=== PATIENT | male | born 1995 | race Caucasian/White ===

== ENCOUNTER 2019-07-27 12:04 | Inpatient (IN) | payer MEDICAID, MEDICARE ==
[~2019-07-27] VITALS: Ht 185.4 cm; Wt 111.6 kg
[~2019-07-27 12:04] MED LIST: CHLO50 PO; CHOL400T56 PO; DIVA-78 PO; EZET10TA13 PO; FISH1CAP27 PO; LEVO15TA6 PO; LORA-1001 PO; LOSA25TA2 PO; QUET200T PO; QUET300T2 PO
[2019-07-27 12:07] VITALS: BP 122/77
[2019-07-27] MEDS ORDERED: HALOPERIDOL 5 MG TABLET PO PRN (12:30)
[2019-07-27] MEDS ORDERED: OMEG-135 PO (12:32)
[2019-07-27] MEDS ORDERED: INFLUENZA VIRUS VACCINE QVS 2019-20 (3YR+)/PF 60 MCG/0.5 ML SYRINGE IM ONE (14:00)
[2019-07-27] MEDS: LORazepam 2 MG TABLET PO PRN (14:01)
[2019-07-27 16:21] VITALS: BP 135/87
[2019-07-27] MEDS: ZOLPIDEM TARTRATE 10 MG TABLET PO PRN (20:41)
[2019-07-27] MEDS ORDERED: ACETAMINOPHEN 325 MG TABLET PO PRN (21:45)
[2019-07-28 04:41] VITALS: BP 148/94
[2019-07-28] MEDS ORDERED: NICOTINE 14 MG/24 HOUR PATCH TD PRN (07:30)
[2019-07-28] MEDS ORDERED: PETROLATUM,WHITE 28 GM JELLY TP PRN (07:30)
[2019-07-28] MEDS ORDERED: LOPERAMIDE HCL 2 MG CAPSULE PO PRN (07:30)
[2019-07-28] MEDS ORDERED: ONDANSETRON HCL 4 MG TABLET PO PRN (07:30)
[2019-07-28] MEDS ORDERED: CloNIDine HCL 0.1 MG TABLET PO PRN (07:30)
[2019-07-28] MEDS ORDERED: ALBUTEROL SULFATE HFA 90 MCG/PUFF 8 GM INHALER IH PRN (07:30)
[2019-07-28] MEDS ORDERED: MAGNESIUM HYDROXIDE SUSPENSION 30 ML UDCUP PO PRN (07:30)
[2019-07-28] MEDS ORDERED: GuaiFENesin/D-METHORPHAN [SUGAR-FREE] 200-20MG/10 ML SYRUP UDCUP PO PRN (07:30)
[2019-07-28] MEDS ORDERED: MAG HYDROX/AL HYDROX/SIMETH ES 30 ML SUSPENSION UDCUP PO PRN (07:30)
[2019-07-28] MEDS ORDERED: DOCUSATE SODIUM 100 MG CAPSULE PO PRN (07:30)
[2019-07-28] MEDS ORDERED: IBUPROFEN 400 MG TABLET PO PRN (07:30)
[2019-07-28 08:21] VITALS: BP 112/78
[2019-07-28] MEDS: LOSARTAN POTASSIUM 25 MG TABLET PO SCH (09:00)
[2019-07-28] MEDS: CHOLECALCIFEROL (VIT D3) 400 UNITS TABLET PO SCH (09:00)
[2019-07-28] MEDS: EZETIMIBE 10 MG TABLET PO SCH (09:00)
[2019-07-28] MEDS: OMEGA-3/DHA/EPA/FISH OIL 1,000 MG CAPSULE PO SCH (09:49)
[2019-07-28] MEDS: BuPROPion HCL XL 150 MG ER TABLET PO SCH (11:56)
[2019-07-28] MEDS: ChlorproMAZINE HCL 100 MG TABLET PO SCH (11:56)
[2019-07-28] MEDS: DIVALPROEX SODIUM 500 MG ER TABLET PO SCH ×2 (11:56→20:36)
[2019-07-28] MEDS: BENZTROPINE MESYLATE 1 MG TABLET PO SCH (11:57)
[2019-07-28 16:16] VITALS: BP 135/74
[2019-07-28] MEDS: LORazepam 2 MG TABLET PO PRN (17:06)
[2019-07-28] MEDS: OLANZapine 7.5 MG TABLET PO SCH (20:36)
[2019-07-28] MEDS: ACETAMINOPHEN 325 MG TABLET PO PRN (20:37)
[2019-07-28] MEDS: ZOLPIDEM TARTRATE 10 MG TABLET PO PRN (22:09)
[2019-07-29 08:24] VITALS: BP 137/90
[2019-07-29] MEDS: CHOLECALCIFEROL (VIT D3) 400 UNITS TABLET PO SCH (08:34)
[2019-07-29] MEDS: BENZTROPINE MESYLATE 1 MG TABLET PO SCH (08:34)
[2019-07-29] MEDS: EZETIMIBE 10 MG TABLET PO SCH (08:34)
[2019-07-29] MEDS: LOSARTAN POTASSIUM 25 MG TABLET PO SCH (08:34)
[2019-07-29] MEDS: ChlorproMAZINE HCL 100 MG TABLET PO SCH (08:34)
[2019-07-29] MEDS: BuPROPion HCL XL 150 MG ER TABLET PO SCH (08:34)
[2019-07-29] MEDS: OLANZapine 5 MG TABLET PO SCH (08:34)
[2019-07-29] MEDS: OMEGA-3/DHA/EPA/FISH OIL 1,000 MG CAPSULE PO SCH (08:34)
[2019-07-29] MEDS: DIVALPROEX SODIUM 500 MG ER TABLET PO SCH ×2 (08:38→20:24)
[2019-07-29 16:17] VITALS: BP 131/80
[2019-07-29] MEDS: LORazepam 2 MG TABLET PO PRN (18:27)
[2019-07-29 18:29] VITALS: BP 130/82
[2019-07-29] MEDS: OLANZapine 7.5 MG TABLET PO SCH (20:24)
[2019-07-29] MEDS: ZOLPIDEM TARTRATE 10 MG TABLET PO PRN (20:28)
[2019-07-29] MEDS ORDERED: LORazepam 2 MG/ML VIAL IM ONE (21:45)
[2019-07-29] MEDS ORDERED: HYPROMELLOSE 0.5% 15 ML OPHTHALMIC SOLUTION OU PRN (23:00)
[2019-07-30 08:15] VITALS: BP 118/70
[2019-07-30] MEDS: OMEGA-3/DHA/EPA/FISH OIL 1,000 MG CAPSULE PO SCH (09:39)
[2019-07-30] MEDS: LOSARTAN POTASSIUM 25 MG TABLET PO SCH (09:39)
[2019-07-30] MEDS: CHOLECALCIFEROL (VIT D3) 400 UNITS TABLET PO SCH (09:39)
[2019-07-30] MEDS: OLANZapine 5 MG TABLET PO SCH (09:39)
[2019-07-30] MEDS: BuPROPion HCL XL 150 MG ER TABLET PO SCH (09:39)
[2019-07-30] MEDS: ChlorproMAZINE HCL 100 MG TABLET PO SCH (09:39)
[2019-07-30] MEDS: EZETIMIBE 10 MG TABLET PO SCH (09:39)
[2019-07-30] MEDS: DIVALPROEX SODIUM 500 MG ER TABLET PO SCH ×2 (09:40→20:46)
[2019-07-30] MEDS: BENZTROPINE MESYLATE 1 MG TABLET PO SCH (09:40)
[2019-07-30 16:39] VITALS: BP 120/87
[2019-07-30] MEDS: OLANZapine 7.5 MG TABLET PO SCH (20:46)
[2019-07-30] MEDS: ZOLPIDEM TARTRATE 10 MG TABLET PO PRN (21:02)
[2019-07-31] MEDS: OMEGA-3/DHA/EPA/FISH OIL 1,000 MG CAPSULE PO SCH (09:00)
[2019-07-31] MEDS: DIVALPROEX SODIUM 500 MG ER TABLET PO SCH ×2 (09:00→20:38)
[2019-07-31] MEDS: BuPROPion HCL XL 150 MG ER TABLET PO SCH (09:00)
[2019-07-31] MEDS: OLANZapine 5 MG TABLET PO SCH (09:00)
[2019-07-31] MEDS: ChlorproMAZINE HCL 100 MG TABLET PO SCH (09:00)
[2019-07-31] MEDS: BENZTROPINE MESYLATE 1 MG TABLET PO SCH (09:00)
[2019-07-31] MEDS: EZETIMIBE 10 MG TABLET PO SCH (09:00)
[2019-07-31] MEDS: CHOLECALCIFEROL (VIT D3) 400 UNITS TABLET PO SCH (09:00)
[2019-07-31] MEDS: LOSARTAN POTASSIUM 25 MG TABLET PO SCH (09:00)
[2019-07-31 09:53] VITALS: BP 135/76
[2019-07-31] MEDS: LORazepam 2 MG TABLET PO PRN (11:27)
[2019-07-31 16:22] VITALS: BP 135/82
[2019-07-31] MEDS: OLANZapine 7.5 MG TABLET PO SCH (20:38)
[2019-07-31] MEDS: ZOLPIDEM TARTRATE 10 MG TABLET PO PRN (21:30)
[2019-07-31] MEDS ORDERED: HYDROCORTISONE 1% 30 GM CREAM TP PRN (22:30)
[2019-07-31] MEDS: ACETAMINOPHEN 325 MG TABLET PO PRN (22:50)
[2019-08-01 01:52] VITALS: BP 124/54
[2019-08-01] MEDS: OMEGA-3/DHA/EPA/FISH OIL 1,000 MG CAPSULE PO SCH (08:17)
[2019-08-01] MEDS: BuPROPion HCL XL 150 MG ER TABLET PO SCH (08:17)
[2019-08-01] MEDS: DIVALPROEX SODIUM 500 MG ER TABLET PO SCH ×2 (08:17→20:28)
[2019-08-01] MEDS: BENZTROPINE MESYLATE 1 MG TABLET PO SCH (08:17)
[2019-08-01 08:18] VITALS: BP 138/72
[2019-08-01] MEDS: OLANZapine 5 MG TABLET PO SCH (08:18)
[2019-08-01] MEDS: LOSARTAN POTASSIUM 25 MG TABLET PO SCH (08:18)
[2019-08-01] MEDS: EZETIMIBE 10 MG TABLET PO SCH (08:18)
[2019-08-01] MEDS: CHOLECALCIFEROL (VIT D3) 400 UNITS TABLET PO SCH (08:26)
[2019-08-01] MEDS: ChlorproMAZINE HCL 100 MG TABLET PO SCH (08:26)
[2019-08-01] MEDS: LORazepam 2 MG TABLET PO PRN ×2 (12:34→21:14)
[2019-08-01 17:47] VITALS: BP 128/78
[2019-08-01] MEDS: OLANZapine 7.5 MG TABLET PO SCH (20:29)
[2019-08-01] MEDS: ZOLPIDEM TARTRATE 10 MG TABLET PO PRN (20:54)
[2019-08-01] MEDS: ACETAMINOPHEN 325 MG TABLET PO PRN (21:14)
[2019-08-02 06:38] VITALS: BP 113/60
[2019-08-02] MEDS: BuPROPion HCL XL 150 MG ER TABLET PO SCH (08:53)
[2019-08-02] MEDS: CHOLECALCIFEROL (VIT D3) 400 UNITS TABLET PO SCH (08:53)
[2019-08-02] MEDS: BENZTROPINE MESYLATE 1 MG TABLET PO SCH (08:53)
[2019-08-02] MEDS: ChlorproMAZINE HCL 100 MG TABLET PO SCH (08:53)
[2019-08-02] MEDS: LOSARTAN POTASSIUM 25 MG TABLET PO SCH (08:53)
[2019-08-02] MEDS: EZETIMIBE 10 MG TABLET PO SCH (08:53)
[2019-08-02] MEDS: LORazepam 2 MG TABLET PO PRN (08:53)
[2019-08-02] MEDS: DIVALPROEX SODIUM 500 MG ER TABLET PO SCH ×2 (08:53→20:32)
[2019-08-02] MEDS: OMEGA-3/DHA/EPA/FISH OIL 1,000 MG CAPSULE PO SCH (08:53)
[2019-08-02] MEDS: OLANZapine 5 MG TABLET PO SCH (08:53)
[2019-08-02 16:10] VITALS: BP 134/70
[2019-08-02] MEDS: ACETAMINOPHEN 325 MG TABLET PO PRN (20:23)
[2019-08-02] MEDS: OLANZapine 7.5 MG TABLET PO SCH (20:33)
[2019-08-02] MEDS: ZOLPIDEM TARTRATE 10 MG TABLET PO PRN (21:20)
[2019-08-03 01:09] VITALS: BP 127/61
[2019-08-03 01:13] VITALS: BP 127/61
[2019-08-03 08:07] VITALS: BP 131/87
[2019-08-03] MEDS: ChlorproMAZINE HCL 100 MG TABLET PO SCH (09:24)
[2019-08-03] MEDS: BENZTROPINE MESYLATE 1 MG TABLET PO SCH (09:24)
[2019-08-03] MEDS: OLANZapine 5 MG TABLET PO SCH (09:24)
[2019-08-03] MEDS: BuPROPion HCL XL 150 MG ER TABLET PO SCH (09:25)
[2019-08-03] MEDS: DIVALPROEX SODIUM 500 MG ER TABLET PO SCH ×2 (09:25→20:44)
[2019-08-03] MEDS: CHOLECALCIFEROL (VIT D3) 400 UNITS TABLET PO SCH (09:25)
[2019-08-03] MEDS: EZETIMIBE 10 MG TABLET PO SCH (09:26)
[2019-08-03] MEDS: OMEGA-3/DHA/EPA/FISH OIL 1,000 MG CAPSULE PO SCH (09:26)
[2019-08-03] MEDS: LOSARTAN POTASSIUM 25 MG TABLET PO SCH (09:26)
[2019-08-03 16:05] VITALS: BP 122/68
[2019-08-03] MEDS: OLANZapine 7.5 MG TABLET PO SCH (20:45)
[2019-08-03] MEDS: LORazepam 2 MG TABLET PO PRN (20:54)
[2019-08-03] MEDS: ZOLPIDEM TARTRATE 10 MG TABLET PO PRN (21:15)
[2019-08-04] MEDS: DIVALPROEX SODIUM 500 MG ER TABLET PO SCH ×2 (08:24→20:40)
[2019-08-04] MEDS: BENZTROPINE MESYLATE 1 MG TABLET PO SCH (08:24)
[2019-08-04] MEDS: LOSARTAN POTASSIUM 25 MG TABLET PO SCH (08:24)
[2019-08-04] MEDS: OLANZapine 5 MG TABLET PO SCH (09:36)
[2019-08-04] MEDS: EZETIMIBE 10 MG TABLET PO SCH (09:36)
[2019-08-04] MEDS: ChlorproMAZINE HCL 100 MG TABLET PO SCH (09:37)
[2019-08-04] MEDS: OMEGA-3/DHA/EPA/FISH OIL 1,000 MG CAPSULE PO SCH (09:37)
[2019-08-04] MEDS: BuPROPion HCL XL 150 MG ER TABLET PO SCH (09:37)
[2019-08-04] MEDS: CHOLECALCIFEROL (VIT D3) 400 UNITS TABLET PO SCH (09:37)
[2019-08-04 16:04] VITALS: BP 138/79
[2019-08-04] MEDS: OLANZapine 7.5 MG TABLET PO SCH (20:40)
[2019-08-04] MEDS: ZOLPIDEM TARTRATE 10 MG TABLET PO PRN (22:11)
[2019-08-05 00:05] VITALS: BP 129/70
[2019-08-05] MEDS: OLANZapine 5 MG TABLET PO SCH (08:16)
[2019-08-05] MEDS: DIVALPROEX SODIUM 500 MG ER TABLET PO SCH ×2 (08:16→22:08)
[2019-08-05] MEDS: ChlorproMAZINE HCL 100 MG TABLET PO SCH (08:16)
[2019-08-05] MEDS: OMEGA-3/DHA/EPA/FISH OIL 1,000 MG CAPSULE PO SCH (08:16)
[2019-08-05] MEDS: BENZTROPINE MESYLATE 1 MG TABLET PO SCH (08:17)
[2019-08-05] MEDS: EZETIMIBE 10 MG TABLET PO SCH (08:17)
[2019-08-05] MEDS: BuPROPion HCL XL 150 MG ER TABLET PO SCH (08:17)
[2019-08-05] MEDS: LOSARTAN POTASSIUM 25 MG TABLET PO SCH (08:17)
[2019-08-05] MEDS: CHOLECALCIFEROL (VIT D3) 400 UNITS TABLET PO SCH (08:17)
[2019-08-05 08:19] VITALS: BP 135/84
[2019-08-05] MEDS: NALTREXONE HCL 50 MG TABLET PO SCH (11:15)
[2019-08-05] MEDS: LORazepam 2 MG TABLET PO PRN (14:59)
[2019-08-05 16:04] VITALS: BP 138/81
[2019-08-05] MEDS: OLANZapine 7.5 MG TABLET PO SCH (22:08)
[2019-08-05] MEDS: ZOLPIDEM TARTRATE 10 MG TABLET PO PRN (22:20)
[2019-08-06 00:12] VITALS: BP 112/63
[2019-08-06] MEDS: OLANZapine 5 MG TABLET PO SCH (11:05)
[2019-08-06] MEDS: ChlorproMAZINE HCL 100 MG TABLET PO SCH (11:05)
[2019-08-06] MEDS: DIVALPROEX SODIUM 500 MG ER TABLET PO SCH ×2 (11:05→21:11)
[2019-08-06] MEDS: EZETIMIBE 10 MG TABLET PO SCH (11:05)
[2019-08-06] MEDS: BENZTROPINE MESYLATE 1 MG TABLET PO SCH (11:05)
[2019-08-06] MEDS: CHOLECALCIFEROL (VIT D3) 400 UNITS TABLET PO SCH (11:05)
[2019-08-06] MEDS: NALTREXONE HCL 50 MG TABLET PO SCH (11:05)
[2019-08-06] MEDS: LOSARTAN POTASSIUM 25 MG TABLET PO SCH (11:06)
[2019-08-06] MEDS: OMEGA-3/DHA/EPA/FISH OIL 1,000 MG CAPSULE PO SCH (11:06)
[2019-08-06] MEDS: BuPROPion HCL XL 150 MG ER TABLET PO SCH (11:11)
[2019-08-06 14:14] VITALS: BP 124/72
[2019-08-06 16:09] VITALS: BP 139/76
[2019-08-06] MEDS ORDERED: LORazepam 2 MG TABLET PO PRN (18:45)
[2019-08-06] MEDS: ZOLPIDEM TARTRATE 10 MG TABLET PO PRN (21:17)
[2019-08-06] MEDS: OLANZapine 7.5 MG TABLET PO SCH (21:20)
[2019-08-07 01:25] VITALS: BP 114/72
[2019-08-07 07:21] LABS: BASOPHILS % (AUTO) 0.4 % (0.0-2.0); EOSINOPHILS % (AUTO) 0.6 % (1.0-6.0); HEMOGLOBIN 13.3 g/dL (13.5-17.5); LYMPHOCYTES % (AUTO) 35.2 % (22.0-44.0); MEAN CORPUSCULAR HEMOGLOBIN 30.9 pg (26.0-34.0); MEAN CORPUSCULAR VOLUME 91 fL (80-100); MONOCYTES # (AUTO) 0.7 K/uL (0.1-1.0); MONOCYTES % (AUTO) 8.3 % (2.0-9.0); NEUTROPHILS # (AUTO) 4.7 K/uL (1.8-7.7); NEUTROPHILS % (AUTO) 55.5 % (40.0-70.0); PLATELET COUNT (AUTO) 194 K/uL (150-450); RED BLOOD CELL COUNT(AUTO) 4.29 MIL/uL (4.50-5.90); RED CELL DISTRIBUTION WIDTH 13.4 % (11.5-14.5)
[2019-08-07 07:46] LABS: HEMOGLOBIN A1C 5.4 % (4.5-6.2)
[2019-08-07 07:55] LABS: ALANINE AMINOTRANSFERASE 75 U/L (12-78); ALBUMIN 3.4 g/dL (3.4-5.0); ALKALINE PHOSPHATASE 44 U/L (46-116); ANION GAP 5 mmol/L (8-16); ASPARTATE AMINOTRANSFERASE 26 U/L (15-37); BILIRUBIN,TOTAL 0.2 mg/dL (0.1-1.0); CARBON DIOXIDE 32 mmol/L (22-29); CHLORIDE 103 mmol/L (98-107); CHOL/HDL RATIO 4.7 (4.2-7.3); CHOLESTEROL 136 mg/dL (131-200); CREATININE 0.97 mg/dL (0.60-1.30); GLOMERULAR FILTR. RATE CALC > 60 mL/min (>60); GLUCOSE,RANDOM 81 mg/dL (70-110); HDL CHOLESTEROL 29 mg/dL (40-60); LDL CHOL (CALC.) 79 mg/dL (0-130); POTASSIUM 4.4 mmol/L (3.5-5.1); SODIUM SERUM 140 mmol/L (136-145); THYROID STIMULATING HORMONE 4.19 uIU/mL (0.36-3.74); TOTAL PROTEIN, SERUM 6.5 g/dL (6.4-8.2); TRIGLYCERIDES 140 mg/dL (15-150); UREA NITROGEN, BLOOD 13 mg/dL (7-18)
[2019-08-07] MEDS: BuPROPion HCL XL 150 MG ER TABLET PO SCH (09:39)
[2019-08-07] MEDS: BENZTROPINE MESYLATE 1 MG TABLET PO SCH (09:39)
[2019-08-07] MEDS: DIVALPROEX SODIUM 500 MG ER TABLET PO SCH ×2 (09:39→20:27)
[2019-08-07] MEDS: OLANZapine 5 MG TABLET PO SCH (09:39)
[2019-08-07] MEDS: OMEGA-3/DHA/EPA/FISH OIL 1,000 MG CAPSULE PO SCH (09:40)
[2019-08-07] MEDS: EZETIMIBE 10 MG TABLET PO SCH (09:40)
[2019-08-07] MEDS: NALTREXONE HCL 50 MG TABLET PO SCH (09:40)
[2019-08-07] MEDS: ChlorproMAZINE HCL 100 MG TABLET PO SCH (09:40)
[2019-08-07] MEDS: CHOLECALCIFEROL (VIT D3) 400 UNITS TABLET PO SCH (09:41)
[2019-08-07] MEDS: LOSARTAN POTASSIUM 25 MG TABLET PO SCH (09:44)
[2019-08-07 09:52] VITALS: BP 136/70
[2019-08-07 16:04] VITALS: BP 125/80
[2019-08-07] MEDS: OLANZapine 7.5 MG TABLET PO SCH (20:27)
[2019-08-07] MEDS: ZOLPIDEM TARTRATE 10 MG TABLET PO PRN (22:15)
[2019-08-08 00:09] VITALS: BP 124/62
[2019-08-08 08:09] VITALS: BP 126/77
[2019-08-08] MEDS: ChlorproMAZINE HCL 100 MG TABLET PO SCH (09:14)
[2019-08-08] MEDS: BENZTROPINE MESYLATE 1 MG TABLET PO SCH (09:14)
[2019-08-08] MEDS: DIVALPROEX SODIUM 500 MG ER TABLET PO SCH ×2 (09:14→20:36)
[2019-08-08] MEDS: LOSARTAN POTASSIUM 25 MG TABLET PO SCH (09:14)
[2019-08-08] MEDS: NALTREXONE HCL 50 MG TABLET PO SCH (09:14)
[2019-08-08] MEDS: CHOLECALCIFEROL (VIT D3) 400 UNITS TABLET PO SCH (09:14)
[2019-08-08] MEDS: BuPROPion HCL XL 150 MG ER TABLET PO SCH (09:14)
[2019-08-08] MEDS: OLANZapine 5 MG TABLET PO SCH (09:14)
[2019-08-08] MEDS: EZETIMIBE 10 MG TABLET PO SCH (09:15)
[2019-08-08] MEDS: OMEGA-3/DHA/EPA/FISH OIL 1,000 MG CAPSULE PO SCH (09:16)
[2019-08-08 16:47] VITALS: BP 136/70
[2019-08-08] MEDS: OLANZapine 7.5 MG TABLET PO SCH (20:35)
[2019-08-08] MEDS: ZOLPIDEM TARTRATE 10 MG TABLET PO PRN (20:36)
[2019-08-09] MEDS: LOSARTAN POTASSIUM 25 MG TABLET PO SCH (08:04)
[2019-08-09] MEDS: EZETIMIBE 10 MG TABLET PO SCH (08:04)
[2019-08-09] MEDS: OMEGA-3/DHA/EPA/FISH OIL 1,000 MG CAPSULE PO SCH (08:04)
[2019-08-09] MEDS: DIVALPROEX SODIUM 500 MG ER TABLET PO SCH (08:04)
[2019-08-09] MEDS: NALTREXONE HCL 50 MG TABLET PO SCH (08:04)
[2019-08-09] MEDS: ChlorproMAZINE HCL 100 MG TABLET PO SCH (08:04)
[2019-08-09] MEDS: CHOLECALCIFEROL (VIT D3) 400 UNITS TABLET PO SCH (08:05)
[2019-08-09] MEDS: BuPROPion HCL XL 150 MG ER TABLET PO SCH (08:06)
[2019-08-09] MEDS: OLANZapine 5 MG TABLET PO SCH (08:06)
[2019-08-09] MEDS: BENZTROPINE MESYLATE 1 MG TABLET PO SCH (08:06)
[2019-08-09 08:19] VITALS: BP 152/90
[2019-08-09] MEDS: ACETAMINOPHEN 325 MG TABLET PO PRN (09:04)
[2019-08-09] MEDS ORDERED: BENZ1TAB10 PO (09:59)
[2019-08-09] MEDS ORDERED: CHLO100T24 PO (09:59)
[2019-08-09] MEDS ORDERED: NALT50TA6 PO (09:59)
[2019-08-09] MEDS ORDERED: BUPR75 PO (09:59)
[2019-08-09] MEDS ORDERED: OLAN5TAB2 PO (09:59)
[2019-08-09] MEDS ORDERED: OLAN7.5T2 PO (09:59)
[2019-08-09] MEDS ORDERED: DIVA125SP PO ×2 (09:59)
== END 2019-08-09 11:50 | disposition home or self-care (01) | DRG 885 ==
LOC: B2X 12:29
PROVIDERS: ADMIT Psychiatry & Neurology Child & Adolescent Psychiatry; ATTEND Psychiatry & Neurology Child & Adolescent Psychiatry
DX: F25.0 Schizoaffective disorder, bipolar type (principal); D64.9 Anemia, unspecified; F84.5 Asperger's syndrome; E03.9 Hypothyroidism, unspecified; E55.9 Vitamin D deficiency, unspecified; E78.5 Hyperlipidemia, unspecified; I10 Essential (primary) hypertension; Z23 Encounter for immunization
CPT/HCPCS: 83036; 84439; 84443; 90686; J2060; J3230

== ENCOUNTER 2020-05-07 17:08 | Emergency (ER) | payer MEDICARE, SELFPAY ==
[~2020-05-07] VITALS: Ht 185.4 cm; Wt 120.0 kg
[~2020-05-07 17:08] MED LIST changes: +BENZ1TAB10 PO; +BUPR75 PO; +CHLO100T31 PO; -CHLO50 PO; -DIVA-78 PO; +DIVA125C20 PO; -FISH1CAP27 PO; -LEVO15TA6 PO; -LORA-1001 PO; +NALT50TA6 PO; +OLAN5TAB2 PO; +OLAN7.5T2 PO; +OMEG-135 PO; -QUET200T PO; -QUET300T2 PO
[2020-05-07 18:59] LABS: AMPHET/METH SCREEN,URINE NEGATIVE (NEGATIVE); BARBITURATE SCREEN, URINE NEGATIVE (NEGATIVE); BENZODIAZEPINES SCREEN,URINE NEGATIVE (NEGATIVE); CANNABINOID SCREEN,URINE NEGATIVE (NEGATIVE); COCAINE SCREEN,URINE NEGATIVE (NEGATIVE); METHADONE SCREEN, URINE NEGATIVE (NEGATIVE); OPIATE SCREEN,URINE NEGATIVE (NEGATIVE); PHENCYCLIDINE SCREEN,URINE NEGATIVE (NEGATIVE)
[2020-05-07 19:26] LABS: BASOPHILS % (AUTO) 0.4 % (0.0-2.0); EOSINOPHILS % (AUTO) 0.2 % (1.0-6.0); HEMATOCRIT 38.2 % (41-53); HEMOGLOBIN 13.1 g/dL (13.5-17.5); LYMPHOCYTES # (AUTO) 2.4 K/uL (1.0-4.8); LYMPHOCYTES % (AUTO) 20.7 % (22.0-44.0); MEAN CORPUSCULAR HEMOGLOBIN 30.3 pg (26.0-34.0); MEAN CORPUSCULAR HGB CONC 34.3 G/dL (31.0-37.0); MEAN CORPUSCULAR VOLUME 88 fL (80-100); MONOCYTES # (AUTO) 0.9 K/uL (0.1-1.0); MONOCYTES % (AUTO) 8.3 % (2.0-9.0); NEUTROPHILS % (AUTO) 70.4 % (40.0-70.0); PLATELET COUNT (AUTO) 181 K/uL (150-450); RED BLOOD CELL COUNT(AUTO) 4.32 MIL/uL (4.50-5.90); RED CELL DISTRIBUTION WIDTH 13.6 % (11.5-14.5)
[2020-05-07 19:38] LABS: ANION GAP 7 mmol/L (8-16); CALCIUM, TOTAL 9.4 mg/dL (8.8-10.5); CARBON DIOXIDE 27 mmol/L (22-29); CHLORIDE 103 mmol/L (98-107); CREATININE 0.82 mg/dL (0.60-1.30); GLOMERULAR FILTR. RATE CALC > 60 mL/min (>60); GLUCOSE,RANDOM 124 mg/dL (70-110); POTASSIUM 3.7 mmol/L (3.5-5.1); SODIUM SERUM 137 mmol/L (136-145); UREA NITROGEN, BLOOD 15 mg/dL (7-18)
[2020-05-07 19:43] LABS: ALANINE AMINOTRANSFERASE 34 U/L (12-78); ALBUMIN 3.8 g/dL (3.4-5.0); ALKALINE PHOSPHATASE 48 U/L (46-116); ASPARTATE AMINOTRANSFERASE 32 U/L (15-37); BILIRUBIN,TOTAL 0.2 mg/dL (0.1-1.0); TOTAL PROTEIN, SERUM 7.6 g/dL (6.4-8.2)
[2020-05-07 20:12] VITALS: BP 132/86
== END 2020-05-07 21:15 | disposition home or self-care (01) ==
LOC: EMS 17:10
DX: M79.604 Pain in right leg (principal); R44.0 Auditory hallucinations; F32.9 Major depressive disorder, single episode, unspecified; F41.9 Anxiety disorder, unspecified; F17.210 Nicotine dependence, cigarettes, uncomplicated; Z88.8 Allergy status to other drugs, medicaments and biological substances; Z79.899 Other long term (current) drug therapy
CPT/HCPCS: 36415; 73590; 73610; 80053; 80307; 85025; 99284; G0480

== ENCOUNTER 2020-05-09 05:20 | Inpatient (IN) | payer MEDICARE ==
[~2020-05-09] VITALS: Ht 188 cm; Wt 127.9 kg
[2020-05-09] MEDS ORDERED: LORazepam 2 MG/ML VIAL IM ONE (06:30)
[2020-05-09] MEDS ORDERED: HALOPERIDOL LACTATE 5 MG/ML VIAL IM ONE (06:30)
[2020-05-09 08:47] LABS: BASOPHILS % (AUTO) 0.8 % (0.0-2.0); EOSINOPHILS % (AUTO) 0.5 % (1.0-6.0); HEMATOCRIT 38.2 % (41-53); HEMOGLOBIN 13.2 g/dL (13.5-17.5); LYMPHOCYTES # (AUTO) 1.8 K/uL (1.0-4.8); LYMPHOCYTES % (AUTO) 21.4 % (22.0-44.0); MEAN CORPUSCULAR HEMOGLOBIN 30.6 pg (26.0-34.0); MEAN CORPUSCULAR HGB CONC 34.4 G/dL (31.0-37.0); MEAN CORPUSCULAR VOLUME 89 fL (80-100); MONOCYTES # (AUTO) 0.9 K/uL (0.1-1.0); MONOCYTES % (AUTO) 9.9 % (2.0-9.0); NEUTROPHILS # (AUTO) 5.8 K/uL (1.8-7.7); NEUTROPHILS % (AUTO) 67.4 % (40.0-70.0); PLATELET COUNT (AUTO) 172 K/uL (150-450); RED CELL DISTRIBUTION WIDTH 13.7 % (11.5-14.5)
[2020-05-09 08:54] LABS: COVID AG,FIA SOURCE NASOPHARYNGEAL
[2020-05-09 08:59] LABS: ANION GAP 6 mmol/L (8-16); CALCIUM, TOTAL 9.1 mg/dL (8.8-10.5); CARBON DIOXIDE 29 mmol/L (22-29); CHLORIDE 103 mmol/L (98-107); CREATININE 0.86 mg/dL (0.60-1.30); GLOMERULAR FILTR. RATE CALC > 60 mL/min (>60); GLUCOSE,RANDOM 95 mg/dL (70-110); SODIUM SERUM 138 mmol/L (136-145); UREA NITROGEN, BLOOD 16 mg/dL (7-18)
[2020-05-09 09:05] LABS: ALANINE AMINOTRANSFERASE 39 U/L (12-78); ALBUMIN 3.7 g/dL (3.4-5.0); ALKALINE PHOSPHATASE 46 U/L (46-116); ASPARTATE AMINOTRANSFERASE 29 U/L (15-37); BILIRUBIN,TOTAL 0.3 mg/dL (0.1-1.0); TOTAL PROTEIN, SERUM 7.5 g/dL (6.4-8.2)
[2020-05-09 09:06] LABS: VALPROIC ACID < 3 mcg/mL (50-100)
[2020-05-09] MEDS ORDERED: ZOLPIDEM TARTRATE 10 MG TABLET PO PRN (09:30)
[2020-05-09] MEDS ORDERED: ATEN-73 PO (16:11)
[2020-05-09] MEDS ORDERED: BUPR-93 PO (16:11)
[2020-05-09] MEDS ORDERED: DIVA-112 PO ×2 (16:11)
[2020-05-09] MEDS ORDERED: LEVO50TA11 PO (16:11)
[2020-05-09] MEDS ORDERED: CHLO50TA41 PO (16:11)
[2020-05-09] MEDS ORDERED: ALBUTEROL SULFATE HFA 90 MCG/PUFF 8 GM INHALER IH PRN (16:15)
[2020-05-09] MEDS ORDERED: PETROLATUM,WHITE 28 GM JELLY TP PRN (16:15)
[2020-05-09] MEDS ORDERED: MAGNESIUM HYDROXIDE SUSPENSION 30 ML UDCUP PO PRN (16:15)
[2020-05-09] MEDS ORDERED: MAG HYDROX/AL HYDROX/SIMETH ES 30 ML SUSPENSION UDCUP PO PRN (16:15)
[2020-05-09] MEDS ORDERED: NICOTINE 14 MG/24 HOUR PATCH TD PRN (16:15)
[2020-05-09] MEDS ORDERED: CloNIDine HCL 0.1 MG TABLET PO PRN (16:15)
[2020-05-09] MEDS ORDERED: LOPERAMIDE HCL 2 MG CAPSULE PO PRN (16:15)
[2020-05-09] MEDS ORDERED: ONDANSETRON HCL 4 MG TABLET PO PRN (16:15)
[2020-05-09] MEDS ORDERED: DOCUSATE SODIUM 100 MG CAPSULE PO PRN (16:15)
[2020-05-09 17:20] VITALS: BP 93/58
[2020-05-09] MEDS: IBUPROFEN 400 MG TABLET PO PRN (20:18)
[2020-05-10 04:52] VITALS: BP 140/86
[2020-05-10] MEDS ORDERED: INFLUENZA VIRUS VACCINE QVS 2020-21 (6MO+)/PF 60 MCG/0.5 ML SYRINGE IM ONE (05:15)
[2020-05-10] MEDS: GuaiFENesin/D-METHORPHAN [SUGAR-FREE] 200-20MG/10 ML SYRUP UDCUP PO PRN (06:11)
[2020-05-10 08:37] VITALS: BP 120/70
[2020-05-10] MEDS: OMEGA-3/DHA/EPA/FISH OIL 1,000 MG CAPSULE PO SCH (09:11)
[2020-05-10] MEDS: ACETAMINOPHEN 325 MG TABLET PO PRN (09:11)
[2020-05-10] MEDS: CHOLECALCIFEROL (VIT D3) 400 UNITS [10 MCG] TABLET PO SCH (09:12)
[2020-05-10] MEDS: LOSARTAN POTASSIUM 25 MG TABLET PO SCH (09:12)
[2020-05-10] MEDS: EZETIMIBE 10 MG TABLET PO SCH (09:12)
[2020-05-10] MEDS ORDERED: BENZTROPINE MESYLATE 1 MG/ML 2 ML VIAL IM ONE (13:00)
[2020-05-10] MEDS ORDERED: ChlorproMAZINE HCL 50 MG/2 ML AMP IM ONE (13:00)
[2020-05-10] MEDS ORDERED: BENZTROPINE MESYLATE 1 MG/ML 2 ML VIAL ONE (13:04)
[2020-05-10] MEDS: LORazepam 2 MG TABLET PO PRN (13:10)
[2020-05-10] MEDS: HALOPERIDOL 5 MG TABLET PO PRN (13:10)
[2020-05-10 16:09] VITALS: BP 122/69
[2020-05-10] MEDS: IBUPROFEN 400 MG TABLET PO PRN (16:14)
[2020-05-10] MEDS: LURASIDONE HCL 40 MG TABLET PO SCH (16:14)
[2020-05-11] MEDS: ACETAMINOPHEN 325 MG TABLET PO PRN (06:52)
[2020-05-11 08:38] VITALS: BP 133/90
[2020-05-11] MEDS: EZETIMIBE 10 MG TABLET PO SCH (09:11)
[2020-05-11] MEDS: OMEGA-3/DHA/EPA/FISH OIL 1,000 MG CAPSULE PO SCH (09:11)
[2020-05-11] MEDS: LORazepam 2 MG TABLET PO PRN ×2 (09:11→14:07)
[2020-05-11] MEDS: LOSARTAN POTASSIUM 25 MG TABLET PO SCH (09:12)
[2020-05-11] MEDS: CHOLECALCIFEROL (VIT D3) 400 UNITS [10 MCG] TABLET PO SCH (09:12)
[2020-05-11 16:09] VITALS: BP 123/73
[2020-05-11] MEDS: LURASIDONE HCL 40 MG TABLET PO SCH (16:23)
[2020-05-11 16:56] VITALS: BP 136/81
[2020-05-11] MEDS: IBUPROFEN 400 MG TABLET PO PRN (16:56)
[2020-05-11] MEDS: DIVALPROEX SODIUM 500 MG DR TABLET PO SCH (21:00)
[2020-05-12 00:30] VITALS: BP 127/74
[2020-05-12] MEDS: GuaiFENesin/D-METHORPHAN [SUGAR-FREE] 200-20MG/10 ML SYRUP UDCUP PO PRN (06:35)
[2020-05-12] MEDS: DIVALPROEX SODIUM 500 MG DR TABLET PO SCH ×3 (08:22→21:19)
[2020-05-12] MEDS: OMEGA-3/DHA/EPA/FISH OIL 1,000 MG CAPSULE PO SCH (08:23)
[2020-05-12] MEDS: EZETIMIBE 10 MG TABLET PO SCH (08:23)
[2020-05-12] MEDS: CHOLECALCIFEROL (VIT D3) 400 UNITS [10 MCG] TABLET PO SCH (08:23)
[2020-05-12] MEDS: LOSARTAN POTASSIUM 25 MG TABLET PO SCH (08:23)
[2020-05-12] MEDS: LORazepam 2 MG TABLET PO PRN (08:23)
[2020-05-12 08:47] VITALS: BP 140/80
[2020-05-12] MEDS: HALOPERIDOL 5 MG TABLET PO PRN (09:14)
[2020-05-12] MEDS ORDERED: ChlorproMAZINE HCL 50 MG/2 ML AMP ONE (09:50)
[2020-05-12] MEDS ORDERED: ChlorproMAZINE HCL 50 MG/2 ML AMP IM ONE ×2 (10:00→16:15)
[2020-05-12] MEDS ORDERED: BENZTROPINE MESYLATE 1 MG/ML 2 ML VIAL IM ONE ×2 (10:00→16:15)
[2020-05-12] MEDS ORDERED: LORazepam 2 MG/ML VIAL ONE (16:14)
[2020-05-12] MEDS ORDERED: LORazepam 2 MG/ML VIAL IM ONE (16:15)
[2020-05-12 16:39] VITALS: BP 121/55
[2020-05-12] MEDS: LURASIDONE HCL 40 MG TABLET PO SCH (17:00)
[2020-05-12 21:35] VITALS: BP 115/77
[2020-05-13 08:07] VITALS: BP 143/78
[2020-05-13] MEDS: CHOLECALCIFEROL (VIT D3) 400 UNITS [10 MCG] TABLET PO SCH (09:37)
[2020-05-13] MEDS: EZETIMIBE 10 MG TABLET PO SCH (09:37)
[2020-05-13] MEDS: LOSARTAN POTASSIUM 25 MG TABLET PO SCH (09:37)
[2020-05-13] MEDS: OMEGA-3/DHA/EPA/FISH OIL 1,000 MG CAPSULE PO SCH (09:38)
[2020-05-13] MEDS: DIVALPROEX SODIUM 500 MG DR TABLET PO SCH ×3 (09:42→21:37)
[2020-05-13] MEDS: OLANZapine 7.5 MG TABLET PO SCH ×3 (09:53→21:37)
[2020-05-13] MEDS: ACETAMINOPHEN 325 MG TABLET PO PRN (16:01)
[2020-05-13] MEDS: LORazepam 2 MG TABLET PO PRN (16:02)
[2020-05-13 16:08] VITALS: BP 120/79
[2020-05-13] MEDS: HALOPERIDOL 5 MG TABLET PO PRN (16:53)
[2020-05-14 06:09] VITALS: BP 124/71
[2020-05-14] MEDS: LEVOTHYROXINE SODIUM 50 MCG TABLET PO SCH ×2 (06:30→06:55)
[2020-05-14 08:06] VITALS: BP 137/83
[2020-05-14] MEDS: OLANZapine 7.5 MG TABLET PO SCH ×3 (10:42→21:00)
[2020-05-14] MEDS: OMEGA-3/DHA/EPA/FISH OIL 1,000 MG CAPSULE PO SCH (10:42)
[2020-05-14] MEDS: EZETIMIBE 10 MG TABLET PO SCH (10:42)
[2020-05-14] MEDS: DIVALPROEX SODIUM 500 MG DR TABLET PO SCH ×3 (10:42→21:00)
[2020-05-14] MEDS: FOLIC ACID 1 MG TABLET PO SCH (10:42)
[2020-05-14] MEDS: CHOLECALCIFEROL (VIT D3) 400 UNITS [10 MCG] TABLET PO SCH (10:42)
[2020-05-14] MEDS: LOSARTAN POTASSIUM 25 MG TABLET PO SCH (10:43)
[2020-05-14] MEDS ORDERED: LORazepam 2 MG/ML VIAL ONE (13:03)
[2020-05-14] MEDS ORDERED: ChlorproMAZINE HCL 50 MG/2 ML AMP ONE (13:03)
[2020-05-14] MEDS ORDERED: LORazepam 2 MG/ML VIAL IM ONE (13:15)
[2020-05-14] MEDS ORDERED: ChlorproMAZINE HCL 50 MG/2 ML AMP IM ONE (13:15)
[2020-05-14 16:38] VITALS: BP 132/80
[2020-05-14] MEDS: HALOPERIDOL 5 MG TABLET PO PRN (16:53)
[2020-05-14] MEDS: LORazepam 2 MG TABLET PO PRN (17:08)
[2020-05-15 04:14] VITALS: BP 141/86
[2020-05-15] MEDS: LEVOTHYROXINE SODIUM 50 MCG TABLET PO SCH (06:30)
[2020-05-15 08:26] VITALS: BP 141/86
[2020-05-15] MEDS: DIVALPROEX SODIUM 500 MG DR TABLET PO SCH ×3 (08:53→20:34)
[2020-05-15] MEDS: EZETIMIBE 10 MG TABLET PO SCH (08:53)
[2020-05-15] MEDS: FOLIC ACID 1 MG TABLET PO SCH (08:53)
[2020-05-15] MEDS: OMEGA-3/DHA/EPA/FISH OIL 1,000 MG CAPSULE PO SCH (08:53)
[2020-05-15] MEDS: OLANZapine 7.5 MG TABLET PO SCH ×3 (08:53→20:35)
[2020-05-15] MEDS: IBUPROFEN 400 MG TABLET PO PRN (08:53)
[2020-05-15] MEDS: LOSARTAN POTASSIUM 25 MG TABLET PO SCH (08:54)
[2020-05-15] MEDS: CHOLECALCIFEROL (VIT D3) 400 UNITS [10 MCG] TABLET PO SCH (08:54)
[2020-05-15] MEDS: LORazepam 2 MG TABLET PO PRN (11:38)
[2020-05-15 16:22] VITALS: BP 134/83
[2020-05-16 06:07] VITALS: BP 126/64
[2020-05-16] MEDS: LEVOTHYROXINE SODIUM 50 MCG TABLET PO SCH (06:19)
[2020-05-16] MEDS: LORazepam 2 MG TABLET PO PRN ×3 (06:45→17:06)
[2020-05-16 08:16] VITALS: BP 134/80
[2020-05-16 08:47] LABS: CHOL/HDL RATIO 3.5 (4.2-7.3)
[2020-05-16] MEDS: EZETIMIBE 10 MG TABLET PO SCH (09:18)
[2020-05-16] MEDS: OLANZapine 7.5 MG TABLET PO SCH ×3 (09:19→20:43)
[2020-05-16] MEDS: FOLIC ACID 1 MG TABLET PO SCH (09:19)
[2020-05-16] MEDS: DIVALPROEX SODIUM 500 MG DR TABLET PO SCH ×3 (09:19→20:42)
[2020-05-16] MEDS: LOSARTAN POTASSIUM 25 MG TABLET PO SCH (09:19)
[2020-05-16] MEDS: OMEGA-3/DHA/EPA/FISH OIL 1,000 MG CAPSULE PO SCH (09:19)
[2020-05-16] MEDS: HALOPERIDOL 5 MG TABLET PO PRN (11:29)
[2020-05-16] MEDS: CHOLECALCIFEROL (VIT D3) 400 UNITS [10 MCG] TABLET PO SCH (11:29)
[2020-05-16] MEDS: IBUPROFEN 400 MG TABLET PO PRN (11:29)
[2020-05-16 16:19] VITALS: BP 138/84
[2020-05-17 01:47] VITALS: BP 128/82
[2020-05-17] MEDS: LEVOTHYROXINE SODIUM 50 MCG TABLET PO SCH (06:24)
[2020-05-17 08:17] VITALS: BP 134/79
[2020-05-17] MEDS: LOSARTAN POTASSIUM 25 MG TABLET PO SCH (08:53)
[2020-05-17] MEDS: CHOLECALCIFEROL (VIT D3) 400 UNITS [10 MCG] TABLET PO SCH (08:53)
[2020-05-17] MEDS: DIVALPROEX SODIUM 500 MG DR TABLET PO SCH ×3 (08:53→20:34)
[2020-05-17] MEDS: OLANZapine 7.5 MG TABLET PO SCH ×3 (08:53→20:35)
[2020-05-17] MEDS: EZETIMIBE 10 MG TABLET PO SCH (08:53)
[2020-05-17] MEDS: OMEGA-3/DHA/EPA/FISH OIL 1,000 MG CAPSULE PO SCH (08:53)
[2020-05-17] MEDS: FOLIC ACID 1 MG TABLET PO SCH (08:53)
[2020-05-17 16:20] VITALS: BP 115/73
[2020-05-18 05:28] VITALS: BP 128/63
[2020-05-18] MEDS: LEVOTHYROXINE SODIUM 50 MCG TABLET PO SCH (06:20)
[2020-05-18] MEDS: DIVALPROEX SODIUM 500 MG DR TABLET PO SCH ×3 (08:22→20:25)
[2020-05-18] MEDS: LOSARTAN POTASSIUM 25 MG TABLET PO SCH (08:23)
[2020-05-18] MEDS: CHOLECALCIFEROL (VIT D3) 400 UNITS [10 MCG] TABLET PO SCH (08:23)
[2020-05-18] MEDS: OMEGA-3/DHA/EPA/FISH OIL 1,000 MG CAPSULE PO SCH (08:23)
[2020-05-18] MEDS: EZETIMIBE 10 MG TABLET PO SCH (08:23)
[2020-05-18] MEDS: FOLIC ACID 1 MG TABLET PO SCH (08:24)
[2020-05-18] MEDS: OLANZapine 7.5 MG TABLET PO SCH ×3 (08:26→20:25)
[2020-05-18 08:51] VITALS: BP 146/72
[2020-05-18] MEDS: LORazepam 2 MG TABLET PO PRN (09:12)
[2020-05-18 16:17] VITALS: BP 129/80
[2020-05-19] MEDS: LEVOTHYROXINE SODIUM 50 MCG TABLET PO SCH (06:28)
[2020-05-19 08:25] VITALS: BP 115/72
[2020-05-19] MEDS: EZETIMIBE 10 MG TABLET PO SCH (09:23)
[2020-05-19] MEDS: LORazepam 2 MG TABLET PO PRN ×3 (09:23→18:57)
[2020-05-19] MEDS: DIVALPROEX SODIUM 500 MG DR TABLET PO SCH ×3 (09:24→22:06)
[2020-05-19] MEDS: CHOLECALCIFEROL (VIT D3) 400 UNITS [10 MCG] TABLET PO SCH (09:24)
[2020-05-19] MEDS: LOSARTAN POTASSIUM 25 MG TABLET PO SCH (09:25)
[2020-05-19] MEDS: FOLIC ACID 1 MG TABLET PO SCH (09:26)
[2020-05-19] MEDS: OMEGA-3/DHA/EPA/FISH OIL 1,000 MG CAPSULE PO SCH (09:26)
[2020-05-19] MEDS: OLANZapine 7.5 MG TABLET PO SCH ×3 (09:26→21:53)
[2020-05-19 16:25] VITALS: BP 125/83
[2020-05-19] MEDS: HALOPERIDOL 5 MG TABLET PO PRN (18:57)
[2020-05-20 06:09] VITALS: BP 121/76
[2020-05-20] MEDS: LEVOTHYROXINE SODIUM 50 MCG TABLET PO SCH (06:27)
[2020-05-20] MEDS: LOSARTAN POTASSIUM 25 MG TABLET PO SCH (10:07)
[2020-05-20] MEDS: OMEGA-3/DHA/EPA/FISH OIL 1,000 MG CAPSULE PO SCH (10:07)
[2020-05-20] MEDS: DIVALPROEX SODIUM 500 MG DR TABLET PO SCH ×3 (10:07→20:38)
[2020-05-20] MEDS: EZETIMIBE 10 MG TABLET PO SCH (10:08)
[2020-05-20] MEDS: CHOLECALCIFEROL (VIT D3) 400 UNITS [10 MCG] TABLET PO SCH (10:08)
[2020-05-20] MEDS: FOLIC ACID 1 MG TABLET PO SCH (10:08)
[2020-05-20] MEDS: OLANZapine 7.5 MG TABLET PO SCH ×3 (10:10→20:39)
[2020-05-20 14:51] VITALS: BP 139/85
[2020-05-20 16:08] VITALS: BP 130/64
[2020-05-20] MEDS: LORazepam 2 MG TABLET PO PRN (16:35)
[2020-05-21 00:56] VITALS: BP 143/83
[2020-05-21] MEDS: LEVOTHYROXINE SODIUM 50 MCG TABLET PO SCH (06:09)
[2020-05-21 08:13] VITALS: BP 137/79
[2020-05-21] MEDS: EZETIMIBE 10 MG TABLET PO SCH (08:28)
[2020-05-21] MEDS: LOSARTAN POTASSIUM 25 MG TABLET PO SCH (08:28)
[2020-05-21] MEDS: OLANZapine 7.5 MG TABLET PO SCH ×3 (08:29→20:34)
[2020-05-21] MEDS: OMEGA-3/DHA/EPA/FISH OIL 1,000 MG CAPSULE PO SCH (08:29)
[2020-05-21] MEDS: CHOLECALCIFEROL (VIT D3) 400 UNITS [10 MCG] TABLET PO SCH (08:29)
[2020-05-21] MEDS: DIVALPROEX SODIUM 500 MG DR TABLET PO SCH ×3 (08:29→20:34)
[2020-05-21] MEDS: FOLIC ACID 1 MG TABLET PO SCH (08:29)
[2020-05-21] MEDS: LORazepam 2 MG TABLET PO PRN (15:05)
[2020-05-21 16:06] VITALS: BP 140/78
[2020-05-22] MEDS: LEVOTHYROXINE SODIUM 50 MCG TABLET PO SCH (06:25)
[2020-05-22 06:39] VITALS: BP 140/86
[2020-05-22 08:30] VITALS: BP 101/55
[2020-05-22] MEDS: OLANZapine 7.5 MG TABLET PO SCH (08:42)
[2020-05-22] MEDS: LOSARTAN POTASSIUM 25 MG TABLET PO SCH (08:42)
[2020-05-22] MEDS: FOLIC ACID 1 MG TABLET PO SCH (08:42)
[2020-05-22] MEDS: EZETIMIBE 10 MG TABLET PO SCH (08:42)
[2020-05-22] MEDS: OMEGA-3/DHA/EPA/FISH OIL 1,000 MG CAPSULE PO SCH (08:44)
[2020-05-22] MEDS: CHOLECALCIFEROL (VIT D3) 400 UNITS [10 MCG] TABLET PO SCH (08:44)
[2020-05-22] MEDS: DIVALPROEX SODIUM 500 MG DR TABLET PO SCH (08:44)
[2020-05-22] MEDS ORDERED: OLAN7.5T9 PO ×2 (09:28)
[2020-05-22] MEDS ORDERED: DIVA-112 PO ×2 (09:28)
== END 2020-05-22 15:11 | disposition home or self-care (01) | DRG 885 ==
LOC: EMS 05:20 → B2X 12:59
DX: F25.1 Schizoaffective disorder, depressive type (principal); R45.851 Suicidal ideations; E03.9 Hypothyroidism, unspecified; E55.9 Vitamin D deficiency, unspecified; E78.5 Hyperlipidemia, unspecified; F17.200 Nicotine dependence, unspecified, uncomplicated; I10 Essential (primary) hypertension; F84.5 Asperger's syndrome; F43.12 Post-traumatic stress disorder, chronic; Z20.828 Contact with and (suspected) exposure to other viral communicable diseases; D64.9 Anemia, unspecified; F32.9 Major depressive disorder, single episode, unspecified; F41.9 Anxiety disorder, unspecified; G40.909 Epilepsy, unspecified, not intractable, without status epilepticus; Z68.36 Body mass index [BMI] 36.0-36.9, adult; Z23 Encounter for immunization; Z59.0 Homelessness; Z65.3 Problems related to other legal circumstances; Z78.1 Physical restraint status; Z79.899 Other long term (current) drug therapy; Z88.8 Allergy status to other drugs, medicaments and biological substances; Z91.5 Personal history of self-harm
CPT/HCPCS: 87426; 90686; 99291; G0480; J0515; J1630; J2060; J3230; Q0162

== ENCOUNTER 2020-07-27 23:19 | Emergency (ER) | payer MEDICARE, OTHER ==
[~2020-07-27] VITALS: Ht 188 cm; Wt 118.2 kg
[~2020-07-27 23:19] MED LIST changes: -BENZ1TAB10 PO; -BUPR75 PO; -CHLO100T31 PO; -CHOL400T56 PO; +DIVA-112 PO; -DIVA125C20 PO; +LEVO50TA11 PO; -NALT50TA6 PO; -OLAN5TAB2 PO; -OLAN7.5T2 PO; +OLAN7.5T9 PO; -OMEG-135 PO
[2020-07-27 23:42] VITALS: BP 135/83
[2020-07-28 00:43] LABS: AMPHET/METH SCREEN,URINE NEGATIVE (NEGATIVE); BARBITURATE SCREEN, URINE NEGATIVE (NEGATIVE); BENZODIAZEPINES SCREEN,URINE NEGATIVE (NEGATIVE); CANNABINOID SCREEN,URINE NEGATIVE (NEGATIVE); COCAINE SCREEN,URINE NEGATIVE (NEGATIVE); METHADONE SCREEN, URINE NEGATIVE (NEGATIVE); OPIATE SCREEN,URINE NEGATIVE (NEGATIVE); PHENCYCLIDINE SCREEN,URINE NEGATIVE (NEGATIVE)
== END 2020-07-28 02:10 | disposition home or self-care (01) ==
LOC: EMS 23:19
DX: F25.9 Schizoaffective disorder, unspecified (principal); F41.9 Anxiety disorder, unspecified; F32.9 Major depressive disorder, single episode, unspecified; F17.210 Nicotine dependence, cigarettes, uncomplicated; Z59.0 Homelessness; Z88.6 Allergy status to analgesic agent
CPT/HCPCS: 99284

== ENCOUNTER 2020-07-28 02:25 | Inpatient (IN) | payer MEDICARE, MEDICAID ==
[~2020-07-28] VITALS: Ht 188 cm; Wt 130.2 kg
[2020-07-28] MEDS ORDERED: LORazepam 2 MG/ML VIAL IM ONE (02:45)
[2020-07-28] MEDS ORDERED: HALOPERIDOL LACTATE 5 MG/ML VIAL IM ONE (02:45)
[2020-07-28 03:31] LABS: COVID AG,FIA SOURCE NASOPHARYNGEAL
[2020-07-28] MEDS ORDERED: HALOPERIDOL 5 MG TABLET PO PRN (03:45)
[2020-07-28] MEDS ORDERED: ZOLPIDEM TARTRATE 10 MG TABLET PO PRN (03:45)
[2020-07-28] MEDS ORDERED: MAG HYDROX/AL HYDROX/SIMETH ES 30 ML SUSPENSION UDCUP PO PRN (06:45)
[2020-07-28] MEDS ORDERED: GuaiFENesin/D-METHORPHAN [SUGAR-FREE] 200-20MG/10 ML SYRUP UDCUP PO PRN (06:45)
[2020-07-28] MEDS ORDERED: ONDANSETRON HCL 4 MG TABLET PO PRN (06:45)
[2020-07-28] MEDS ORDERED: DOCUSATE SODIUM 100 MG CAPSULE PO PRN (06:45)
[2020-07-28] MEDS ORDERED: CloNIDine HCL 0.1 MG TABLET PO PRN (06:45)
[2020-07-28] MEDS ORDERED: IBUPROFEN 400 MG TABLET PO PRN (06:45)
[2020-07-28] MEDS ORDERED: NICOTINE 14 MG/24 HOUR PATCH TD PRN (06:45)
[2020-07-28] MEDS ORDERED: LOPERAMIDE HCL 2 MG CAPSULE PO PRN (06:45)
[2020-07-28] MEDS ORDERED: ALBUTEROL SULFATE HFA 90 MCG/PUFF 8 GM INHALER IH PRN (06:45)
[2020-07-28] MEDS ORDERED: PETROLATUM,WHITE 28 GM JELLY TP PRN (06:45)
[2020-07-28] MEDS ORDERED: MAGNESIUM HYDROXIDE SUSPENSION 30 ML UDCUP PO PRN (06:45)
[2020-07-28] MEDS ORDERED: -PHARMACY VACCINE NOTE- MISC ONE (11:30)
[2020-07-28] MEDS: EZETIMIBE 10 MG TABLET PO SCH (12:51)
[2020-07-28] MEDS: LOSARTAN POTASSIUM 25 MG TABLET PO SCH (12:52)
[2020-07-28 16:06] VITALS: BP 112/61
[2020-07-28] MEDS: DIVALPROEX SODIUM 500 MG ER TABLET PO SCH ×2 (16:34→21:00)
[2020-07-28] MEDS: OLANZapine 7.5 MG TABLET PO SCH ×2 (16:34→21:00)
[2020-07-28] MEDS: ACETAMINOPHEN 325 MG TABLET PO PRN (17:31)
[2020-07-29 03:37] VITALS: BP 117/84
[2020-07-29] MEDS: LEVOTHYROXINE SODIUM 50 MCG TABLET PO SCH (06:52)
[2020-07-29] MEDS: EZETIMIBE 10 MG TABLET PO SCH (08:33)
[2020-07-29] MEDS: DIVALPROEX SODIUM 500 MG ER TABLET PO SCH ×3 (08:33→20:36)
[2020-07-29] MEDS: LOSARTAN POTASSIUM 25 MG TABLET PO SCH (08:33)
[2020-07-29] MEDS: OLANZapine 7.5 MG TABLET PO SCH ×3 (08:33→20:36)
[2020-07-29 08:35] VITALS: BP 140/70
[2020-07-29 09:11] LABS: CHOL/HDL RATIO 6.7 (4.2-7.3)
[2020-07-29] MEDS ORDERED: HALOPERIDOL LACTATE 5 MG/ML VIAL IM ONE (09:30)
[2020-07-29] MEDS ORDERED: LORazepam 2 MG/ML VIAL IM ONE (09:30)
[2020-07-29] MEDS ORDERED: QUEtiapine FUMARATE 100 MG TABLET PO ONE (09:45)
[2020-07-29 16:34] VITALS: BP 119/74
[2020-07-29] MEDS: ACETAMINOPHEN 325 MG TABLET PO PRN (17:05)
[2020-07-30] MEDS: LEVOTHYROXINE SODIUM 50 MCG TABLET PO SCH (06:27)
[2020-07-30 08:10] VITALS: BP 123/64
[2020-07-30] MEDS: DIVALPROEX SODIUM 500 MG ER TABLET PO SCH ×3 (09:19→20:31)
[2020-07-30] MEDS: OLANZapine 7.5 MG TABLET PO SCH ×3 (09:20→20:31)
[2020-07-30] MEDS: LOSARTAN POTASSIUM 25 MG TABLET PO SCH (09:20)
[2020-07-30] MEDS: EZETIMIBE 10 MG TABLET PO SCH (09:20)
[2020-07-30] MEDS: LORazepam 2 MG TABLET PO PRN ×2 (09:22→18:26)
[2020-07-30 16:14] VITALS: BP 143/65
[2020-07-30] MEDS: ACETAMINOPHEN 325 MG TABLET PO PRN (20:42)
[2020-07-31 06:15] VITALS: BP 133/68
[2020-07-31] MEDS: LEVOTHYROXINE SODIUM 50 MCG TABLET PO SCH (06:29)
[2020-07-31 08:30] VITALS: BP 166/99
[2020-07-31] MEDS: OLANZapine 7.5 MG TABLET PO SCH ×3 (10:03→20:33)
[2020-07-31] MEDS: EZETIMIBE 10 MG TABLET PO SCH (10:03)
[2020-07-31] MEDS: DIVALPROEX SODIUM 500 MG ER TABLET PO SCH ×3 (10:03→20:33)
[2020-07-31] MEDS: LOSARTAN POTASSIUM 25 MG TABLET PO SCH (10:03)
[2020-07-31] MEDS: LORazepam 2 MG TABLET PO PRN ×2 (10:33→17:22)
[2020-07-31 16:15] VITALS: BP 135/82
[2020-08-01] MEDS: LEVOTHYROXINE SODIUM 50 MCG TABLET PO SCH (07:08)
[2020-08-01 08:26] VITALS: BP 149/84
[2020-08-01] MEDS: LOSARTAN POTASSIUM 25 MG TABLET PO SCH (08:41)
[2020-08-01] MEDS: OLANZapine 7.5 MG TABLET PO SCH ×3 (08:41→20:27)
[2020-08-01] MEDS: DIVALPROEX SODIUM 500 MG ER TABLET PO SCH ×3 (08:41→20:27)
[2020-08-01] MEDS: AmLODIPine BESYLATE 5 MG TABLET PO SCH (08:41)
[2020-08-01] MEDS: EZETIMIBE 10 MG TABLET PO SCH (08:41)
[2020-08-01] MEDS: LORazepam 2 MG TABLET PO PRN ×3 (11:17→20:38)
[2020-08-01 16:12] VITALS: BP 122/70
[2020-08-02] MEDS: LEVOTHYROXINE SODIUM 50 MCG TABLET PO SCH (07:01)
[2020-08-02 08:19] LABS: COVID AG,FIA SOURCE NASOPHARYNGEAL
[2020-08-02 08:27] VITALS: BP 125/82
[2020-08-02] MEDS: EZETIMIBE 10 MG TABLET PO SCH (08:29)
[2020-08-02] MEDS: DIVALPROEX SODIUM 500 MG ER TABLET PO SCH ×3 (08:29→20:20)
[2020-08-02] MEDS: AmLODIPine BESYLATE 5 MG TABLET PO SCH (08:29)
[2020-08-02] MEDS: OLANZapine 7.5 MG TABLET PO SCH ×3 (08:29→20:20)
[2020-08-02] MEDS: LOSARTAN POTASSIUM 25 MG TABLET PO SCH (08:30)
[2020-08-02] MEDS: LORazepam 2 MG TABLET PO PRN (08:59)
[2020-08-02 16:10] VITALS: BP 123/79
[2020-08-02] MEDS: ACETAMINOPHEN 325 MG TABLET PO PRN (18:48)
[2020-08-03 02:02] VITALS: BP 134/87
[2020-08-03] MEDS: LEVOTHYROXINE SODIUM 50 MCG TABLET PO SCH (06:36)
[2020-08-03 08:23] VITALS: BP 134/86
[2020-08-03] MEDS: OLANZapine 7.5 MG TABLET PO SCH (08:32)
[2020-08-03] MEDS: LOSARTAN POTASSIUM 25 MG TABLET PO SCH (08:32)
[2020-08-03] MEDS: EZETIMIBE 10 MG TABLET PO SCH (08:32)
[2020-08-03] MEDS: AmLODIPine BESYLATE 5 MG TABLET PO SCH (08:32)
[2020-08-03] MEDS: DIVALPROEX SODIUM 500 MG ER TABLET PO SCH (08:32)
[2020-08-03] MEDS: LORazepam 2 MG TABLET PO PRN (09:16)
[2020-08-03] MEDS ORDERED: AMLO-257 PO (11:12)
== END 2020-08-03 13:15 | disposition home or self-care (01) | DRG 885 ==
LOC: EMS 02:27 → B2X 03:35
PROVIDERS: ADMIT Psychiatry & Neurology Psychiatry; ATTEND Psychiatry & Neurology Psychiatry
DX: F25.0 Schizoaffective disorder, bipolar type (principal); R45.851 Suicidal ideations; F10.10 Alcohol abuse, uncomplicated; E78.5 Hyperlipidemia, unspecified; E03.9 Hypothyroidism, unspecified; F84.5 Asperger's syndrome; I10 Essential (primary) hypertension; Z20.822 Contact with and (suspected) exposure to COVID-19; Z78.1 Physical restraint status; Z91.14 Patient's other noncompliance with medication regimen; Z91.5 Personal history of self-harm; Z88.8 Allergy status to other drugs, medicaments and biological substances; F17.210 Nicotine dependence, cigarettes, uncomplicated; R00.0 Tachycardia, unspecified; F90.9 Attention-deficit hyperactivity disorder, unspecified type
CPT/HCPCS: 87426; 99291; J1630; J2060

== ENCOUNTER 2020-08-10 18:52 | Inpatient (IN) | payer MEDICARE, MEDICAID ==
[~2020-08-10] VITALS: Ht 188 cm; Wt 132.4 kg
[~2020-08-10 18:52] MED LIST changes: +AMLO-257 PO
[2020-08-10 19:55] LABS: COVID AG,FIA SOURCE NASOPHARYNGEAL
[2020-08-10 20:18] LABS: AMPHET/METH SCREEN,URINE NEGATIVE (NEGATIVE); BARBITURATE SCREEN, URINE NEGATIVE (NEGATIVE); BENZODIAZEPINES SCREEN,URINE NEGATIVE (NEGATIVE); CANNABINOID SCREEN,URINE NEGATIVE (NEGATIVE); COCAINE SCREEN,URINE NEGATIVE (NEGATIVE); METHADONE SCREEN, URINE NEGATIVE (NEGATIVE); OPIATE SCREEN,URINE NEGATIVE (NEGATIVE)
[2020-08-10 20:19] LABS: PHENCYCLIDINE SCREEN,URINE NEGATIVE (NEGATIVE)
[2020-08-11] MEDS: LORazepam 2 MG TABLET PO PRN ×2 (00:34→11:41)
[2020-08-11] MEDS: ZOLPIDEM TARTRATE 10 MG TABLET PO PRN (00:34)
[2020-08-11 04:57] LABS: APPEARANCE,URINE CLEAR (CLEAR); BILIRUBIN,URINE NEGATIVE (NEGATIVE); GLUCOSE, URINE (UA) NEGATIVE (NEGATIVE); KETONES,URINE NEGATIVE (NEGATIVE); LEUKOCYTE ESTERASE ,URINE NEGATIVE (NEGATIVE); NITRATE,URINE NEGATIVE (NEGATIVE); OCCULT BLOOD,URINE NEGATIVE (NEGATIVE); PROTEIN,URINE NEGATIVE (NEGATIVE); UROBILINOGEN,URINE 0.2 mg/dL (<=1.0)
[2020-08-11] MEDS ORDERED: MAG HYDROX/AL HYDROX/SIMETH ES 30 ML SUSPENSION UDCUP PO PRN (08:15)
[2020-08-11] MEDS ORDERED: PETROLATUM,WHITE 28 GM JELLY TP PRN (08:15)
[2020-08-11] MEDS ORDERED: CloNIDine HCL 0.1 MG TABLET PO PRN (08:15)
[2020-08-11] MEDS ORDERED: ALBUTEROL SULFATE HFA 90 MCG/PUFF 8 GM INHALER IH PRN (08:15)
[2020-08-11] MEDS ORDERED: ONDANSETRON HCL 4 MG TABLET PO PRN (08:15)
[2020-08-11] MEDS ORDERED: GuaiFENesin/D-METHORPHAN [SUGAR-FREE] 200-20MG/10 ML SYRUP UDCUP PO PRN (08:15)
[2020-08-11] MEDS ORDERED: LOPERAMIDE HCL 2 MG CAPSULE PO PRN (08:15)
[2020-08-11] MEDS ORDERED: MAGNESIUM HYDROXIDE SUSPENSION 30 ML UDCUP PO PRN (08:15)
[2020-08-11] MEDS ORDERED: DOCUSATE SODIUM 100 MG CAPSULE PO PRN (08:15)
[2020-08-11] MEDS: LOSARTAN POTASSIUM 25 MG TABLET PO SCH (09:26)
[2020-08-11] MEDS: EZETIMIBE 10 MG TABLET PO SCH (09:26)
[2020-08-11] MEDS: AmLODIPine BESYLATE 5 MG TABLET PO SCH (09:27)
[2020-08-11 16:05] VITALS: BP 133/78
[2020-08-11] MEDS ORDERED: DiphenhydrAMINE HCL 50 MG/ML VIAL ONE (16:43)
[2020-08-11] MEDS ORDERED: LORazepam 2 MG/ML VIAL ONE (16:43)
[2020-08-11] MEDS ORDERED: DiphenhydrAMINE HCL 50 MG/ML VIAL IM ONE (16:43)
[2020-08-11] MEDS ORDERED: HALOPERIDOL LACTATE 5 MG/ML VIAL IM ONE (16:43)
[2020-08-11] MEDS ORDERED: HALOPERIDOL LACTATE 5 MG/ML VIAL ONE (16:43)
[2020-08-11] MEDS ORDERED: LORazepam 2 MG/ML VIAL IM ONE (16:43)
[2020-08-11] MEDS: OLANZapine 10 MG TABLET PO SCH (17:00)
[2020-08-11] MEDS: DIVALPROEX SODIUM 500 MG DR TABLET PO SCH ×2 (17:00→20:03)
[2020-08-11] MEDS: OLANZapine 7.5 MG TABLET PO SCH (20:02)
[2020-08-12] MEDS: LEVOTHYROXINE SODIUM 50 MCG TABLET PO SCH (07:00)
[2020-08-12 08:00] VITALS: BP 117/61
[2020-08-12] MEDS: LORazepam 2 MG TABLET PO PRN ×2 (08:52→16:24)
[2020-08-12] MEDS: DIVALPROEX SODIUM 500 MG DR TABLET PO SCH ×3 (08:52→20:10)
[2020-08-12] MEDS: AmLODIPine BESYLATE 5 MG TABLET PO SCH (08:52)
[2020-08-12] MEDS: LOSARTAN POTASSIUM 25 MG TABLET PO SCH (08:53)
[2020-08-12] MEDS: EZETIMIBE 10 MG TABLET PO SCH (08:53)
[2020-08-12] MEDS: OLANZapine 10 MG TABLET PO SCH ×2 (08:53→16:24)
[2020-08-12] MEDS: OLANZapine 7.5 MG TABLET PO SCH (20:10)
[2020-08-13] MEDS: LEVOTHYROXINE SODIUM 50 MCG TABLET PO SCH (07:00)
[2020-08-13] MEDS: LORazepam 2 MG TABLET PO PRN ×2 (08:28→16:16)
[2020-08-13] MEDS: DIVALPROEX SODIUM 500 MG DR TABLET PO SCH ×3 (08:29→20:07)
[2020-08-13] MEDS: LOSARTAN POTASSIUM 25 MG TABLET PO SCH (08:29)
[2020-08-13] MEDS: AmLODIPine BESYLATE 5 MG TABLET PO SCH (08:29)
[2020-08-13] MEDS: OLANZapine 10 MG TABLET PO SCH ×2 (08:29→16:15)
[2020-08-13] MEDS: EZETIMIBE 10 MG TABLET PO SCH (08:29)
[2020-08-13 08:50] VITALS: BP 132/88
[2020-08-13 16:31] VITALS: BP 132/78
[2020-08-13] MEDS: OLANZapine 7.5 MG TABLET PO SCH (20:07)
[2020-08-14] MEDS: LEVOTHYROXINE SODIUM 50 MCG TABLET PO SCH (06:32)
[2020-08-14 09:18] VITALS: BP 153/92
[2020-08-14] MEDS: OLANZapine 10 MG TABLET PO SCH ×2 (09:35→16:12)
[2020-08-14] MEDS: LOSARTAN POTASSIUM 25 MG TABLET PO SCH (09:35)
[2020-08-14] MEDS: LORazepam 2 MG TABLET PO PRN (09:35)
[2020-08-14] MEDS: EZETIMIBE 10 MG TABLET PO SCH (09:35)
[2020-08-14] MEDS: DIVALPROEX SODIUM 500 MG DR TABLET PO SCH ×3 (09:35→20:16)
[2020-08-14] MEDS: HALOPERIDOL 5 MG TABLET PO PRN (09:35)
[2020-08-14] MEDS: AmLODIPine BESYLATE 5 MG TABLET PO SCH (09:35)
[2020-08-14 16:13] VITALS: BP 108/63
[2020-08-14] MEDS: OLANZapine 7.5 MG TABLET PO SCH (20:17)
[2020-08-15] MEDS: LEVOTHYROXINE SODIUM 50 MCG TABLET PO SCH (06:43)
[2020-08-15] MEDS: AmLODIPine BESYLATE 5 MG TABLET PO SCH (09:30)
[2020-08-15] MEDS: HALOPERIDOL 5 MG TABLET PO PRN ×2 (09:30→15:36)
[2020-08-15] MEDS: DIVALPROEX SODIUM 500 MG DR TABLET PO SCH ×3 (09:30→20:21)
[2020-08-15] MEDS: EZETIMIBE 10 MG TABLET PO SCH (09:30)
[2020-08-15] MEDS: LORazepam 2 MG TABLET PO PRN ×2 (09:30→17:44)
[2020-08-15] MEDS: OLANZapine 10 MG TABLET PO SCH ×2 (09:30→16:25)
[2020-08-15] MEDS: LOSARTAN POTASSIUM 25 MG TABLET PO SCH (09:30)
[2020-08-15] MEDS: OLANZapine 7.5 MG TABLET PO SCH (20:20)
[2020-08-16] MEDS: LEVOTHYROXINE SODIUM 50 MCG TABLET PO SCH (06:28)
[2020-08-16] MEDS: OLANZapine 10 MG TABLET PO SCH ×2 (08:32→16:06)
[2020-08-16] MEDS: LOSARTAN POTASSIUM 25 MG TABLET PO SCH (08:32)
[2020-08-16] MEDS: DIVALPROEX SODIUM 500 MG DR TABLET PO SCH ×3 (08:32→20:27)
[2020-08-16] MEDS: AmLODIPine BESYLATE 5 MG TABLET PO SCH (08:32)
[2020-08-16] MEDS: EZETIMIBE 10 MG TABLET PO SCH (08:33)
[2020-08-16 10:00] VITALS: BP 138/82
[2020-08-16] MEDS: HALOPERIDOL 5 MG TABLET PO PRN (15:38)
[2020-08-16] MEDS: LORazepam 2 MG TABLET PO PRN (16:04)
[2020-08-16 16:44] VITALS: BP 129/83
[2020-08-16] MEDS: OLANZapine 7.5 MG TABLET PO SCH (20:29)
[2020-08-17] MEDS: LEVOTHYROXINE SODIUM 50 MCG TABLET PO SCH (06:50)
[2020-08-17 08:00] VITALS: BP 133/89
[2020-08-17] MEDS: AmLODIPine BESYLATE 5 MG TABLET PO SCH (08:05)
[2020-08-17] MEDS: LOSARTAN POTASSIUM 25 MG TABLET PO SCH (08:05)
[2020-08-17] MEDS: OLANZapine 10 MG TABLET PO SCH ×2 (08:05→17:11)
[2020-08-17] MEDS: EZETIMIBE 10 MG TABLET PO SCH (08:05)
[2020-08-17] MEDS: DIVALPROEX SODIUM 500 MG DR TABLET PO SCH ×3 (08:05→20:11)
[2020-08-17] MEDS: LORazepam 2 MG TABLET PO PRN ×2 (08:06→17:35)
[2020-08-17 12:34] VITALS: BP 130/92
[2020-08-17] MEDS: IBUPROFEN 400 MG TABLET PO PRN (12:34)
[2020-08-17 16:26] VITALS: BP 124/84
[2020-08-17] MEDS: HALOPERIDOL 5 MG TABLET PO PRN (17:10)
[2020-08-17] MEDS: OLANZapine 7.5 MG TABLET PO SCH (20:11)
[2020-08-17 23:02] LABS: COVID AG,FIA SOURCE NASOPHARYNGEAL
[2020-08-18] MEDS: LEVOTHYROXINE SODIUM 50 MCG TABLET PO SCH (06:47)
[2020-08-18] MEDS: LOSARTAN POTASSIUM 25 MG TABLET PO SCH (07:56)
[2020-08-18] MEDS: DIVALPROEX SODIUM 500 MG DR TABLET PO SCH ×3 (07:56→20:37)
[2020-08-18] MEDS: OLANZapine 10 MG TABLET PO SCH ×2 (07:56→17:06)
[2020-08-18] MEDS: AmLODIPine BESYLATE 5 MG TABLET PO SCH (07:56)
[2020-08-18] MEDS: EZETIMIBE 10 MG TABLET PO SCH (07:57)
[2020-08-18] MEDS: LORazepam 2 MG TABLET PO PRN ×3 (07:58→19:05)
[2020-08-18 08:00] VITALS: BP 133/83
[2020-08-18 10:02] VITALS: BP 138/88
[2020-08-18] MEDS: HALOPERIDOL 5 MG TABLET PO PRN ×2 (15:03→19:05)
[2020-08-18 16:17] VITALS: BP 131/71
[2020-08-18] MEDS: OLANZapine 7.5 MG TABLET PO SCH (20:37)
[2020-08-19] MEDS: LEVOTHYROXINE SODIUM 50 MCG TABLET PO SCH (07:00)
[2020-08-19] MEDS: OLANZapine 10 MG TABLET PO SCH ×2 (09:15→16:16)
[2020-08-19] MEDS: AmLODIPine BESYLATE 5 MG TABLET PO SCH (09:15)
[2020-08-19] MEDS: DIVALPROEX SODIUM 500 MG DR TABLET PO SCH ×3 (09:15→20:17)
[2020-08-19] MEDS: LOSARTAN POTASSIUM 25 MG TABLET PO SCH (09:15)
[2020-08-19] MEDS: EZETIMIBE 10 MG TABLET PO SCH (09:15)
[2020-08-19] MEDS: NYSTATIN 30 GM CREAM TP SCH ×2 (09:16→16:16)
[2020-08-19 16:56] VITALS: BP 104/77
[2020-08-19] MEDS: OLANZapine 7.5 MG TABLET PO SCH (20:17)
[2020-08-20] MEDS: LOSARTAN POTASSIUM 25 MG TABLET PO SCH (08:10)
[2020-08-20] MEDS: LEVOTHYROXINE SODIUM 50 MCG TABLET PO SCH (08:10)
[2020-08-20] MEDS: EZETIMIBE 10 MG TABLET PO SCH (08:10)
[2020-08-20] MEDS: AmLODIPine BESYLATE 5 MG TABLET PO SCH (08:12)
[2020-08-20] MEDS: OLANZapine 10 MG TABLET PO SCH ×2 (08:12→16:28)
[2020-08-20] MEDS: DIVALPROEX SODIUM 500 MG DR TABLET PO SCH ×3 (08:12→20:30)
[2020-08-20] MEDS: NYSTATIN 30 GM CREAM TP SCH ×2 (08:13→16:36)
[2020-08-20 08:15] VITALS: BP 107/67
[2020-08-20] MEDS: LORazepam 2 MG TABLET PO PRN ×2 (12:27→16:29)
[2020-08-20] MEDS: HALOPERIDOL 5 MG TABLET PO PRN (16:29)
[2020-08-20] MEDS: OLANZapine 7.5 MG TABLET PO SCH (20:30)
[2020-08-21] MEDS: LEVOTHYROXINE SODIUM 50 MCG TABLET PO SCH (07:00)
[2020-08-21 08:00] VITALS: BP 138/98
[2020-08-21] MEDS: OLANZapine 10 MG TABLET PO SCH ×2 (09:04→16:34)
[2020-08-21] MEDS: EZETIMIBE 10 MG TABLET PO SCH (09:04)
[2020-08-21] MEDS: DIVALPROEX SODIUM 500 MG DR TABLET PO SCH ×3 (09:04→20:24)
[2020-08-21] MEDS: LORazepam 2 MG TABLET PO PRN (09:05)
[2020-08-21] MEDS: HALOPERIDOL 5 MG TABLET PO PRN (09:05)
[2020-08-21] MEDS: AmLODIPine BESYLATE 5 MG TABLET PO SCH (10:27)
[2020-08-21] MEDS: LOSARTAN POTASSIUM 25 MG TABLET PO SCH (10:27)
[2020-08-21] MEDS: NYSTATIN 30 GM CREAM TP SCH ×2 (10:27→16:33)
[2020-08-21 16:31] VITALS: BP 117/77
[2020-08-21] MEDS: OLANZapine 7.5 MG TABLET PO SCH (20:24)
[2020-08-22] MEDS: LEVOTHYROXINE SODIUM 50 MCG TABLET PO SCH (06:37)
[2020-08-22] MEDS: DIVALPROEX SODIUM 500 MG DR TABLET PO SCH ×3 (08:00→20:35)
[2020-08-22] MEDS: AmLODIPine BESYLATE 5 MG TABLET PO SCH (08:00)
[2020-08-22] MEDS: HALOPERIDOL 5 MG TABLET PO PRN ×3 (08:00→16:15)
[2020-08-22] MEDS: LOSARTAN POTASSIUM 25 MG TABLET PO SCH (08:00)
[2020-08-22] MEDS: EZETIMIBE 10 MG TABLET PO SCH (08:00)
[2020-08-22] MEDS: LORazepam 2 MG TABLET PO PRN ×3 (08:00→16:15)
[2020-08-22] MEDS: OLANZapine 10 MG TABLET PO SCH ×2 (08:00→16:06)
[2020-08-22] MEDS: NYSTATIN 30 GM CREAM TP SCH ×2 (08:01→17:52)
[2020-08-22 16:42] VITALS: BP 131/84
[2020-08-22] MEDS: IBUPROFEN 400 MG TABLET PO PRN (18:24)
[2020-08-22] MEDS: OLANZapine 7.5 MG TABLET PO SCH (20:36)
[2020-08-23] MEDS: LEVOTHYROXINE SODIUM 50 MCG TABLET PO SCH (06:39)
[2020-08-23 08:44] VITALS: BP 148/103
[2020-08-23] MEDS: EZETIMIBE 10 MG TABLET PO SCH (11:32)
[2020-08-23] MEDS: LORazepam 2 MG TABLET PO PRN (11:32)
[2020-08-23] MEDS: OLANZapine 10 MG TABLET PO SCH ×2 (11:32→16:04)
[2020-08-23] MEDS: NYSTATIN 30 GM CREAM TP SCH ×2 (11:32→16:04)
[2020-08-23] MEDS: DIVALPROEX SODIUM 500 MG DR TABLET PO SCH ×3 (11:32→20:21)
[2020-08-23] MEDS: AmLODIPine BESYLATE 5 MG TABLET PO SCH (11:32)
[2020-08-23] MEDS: HALOPERIDOL 5 MG TABLET PO PRN ×2 (11:33→16:04)
[2020-08-23] MEDS: LOSARTAN POTASSIUM 25 MG TABLET PO SCH (11:33)
[2020-08-23] MEDS: OLANZapine 7.5 MG TABLET PO SCH (20:21)
[2020-08-24] MEDS: LEVOTHYROXINE SODIUM 50 MCG TABLET PO SCH ×2 (07:00→08:18)
[2020-08-24] MEDS: LOSARTAN POTASSIUM 25 MG TABLET PO SCH (08:17)
[2020-08-24] MEDS: EZETIMIBE 10 MG TABLET PO SCH (08:17)
[2020-08-24] MEDS: HALOPERIDOL 5 MG TABLET PO PRN ×2 (08:21→15:41)
[2020-08-24] MEDS: DIVALPROEX SODIUM 500 MG DR TABLET PO SCH ×3 (08:21→20:36)
[2020-08-24] MEDS: AmLODIPine BESYLATE 5 MG TABLET PO SCH (08:21)
[2020-08-24] MEDS: NYSTATIN 30 GM CREAM TP SCH ×2 (08:21→16:17)
[2020-08-24] MEDS: LORazepam 2 MG TABLET PO PRN ×2 (08:21→15:52)
[2020-08-24] MEDS: OLANZapine 10 MG TABLET PO SCH ×2 (08:21→16:17)
[2020-08-24] MEDS: ACETAMINOPHEN 325 MG TABLET PO PRN (16:15)
[2020-08-24 16:32] VITALS: BP 117/70
[2020-08-24] MEDS: CIPROFLOXACIN HCL 0.2%/HYDROCORT 1% 10 ML OTIC SUSPENSION AD SCH (17:19)
[2020-08-24] MEDS: OLANZapine 7.5 MG TABLET PO SCH (20:37)
[2020-08-25 08:00] VITALS: BP 140/100
[2020-08-25] MEDS: AmLODIPine BESYLATE 5 MG TABLET PO SCH (09:36)
[2020-08-25] MEDS: HALOPERIDOL 5 MG TABLET PO PRN (09:36)
[2020-08-25] MEDS: OLANZapine 10 MG TABLET PO SCH ×2 (09:36→16:00)
[2020-08-25] MEDS: LORazepam 2 MG TABLET PO PRN ×2 (09:36→16:35)
[2020-08-25] MEDS: DIVALPROEX SODIUM 500 MG DR TABLET PO SCH ×3 (09:36→20:47)
[2020-08-25] MEDS: CIPROFLOXACIN HCL 0.2%/HYDROCORT 1% 10 ML OTIC SUSPENSION AD SCH ×3 (09:37→16:00)
[2020-08-25] MEDS: LOSARTAN POTASSIUM 25 MG TABLET PO SCH (09:37)
[2020-08-25] MEDS: EZETIMIBE 10 MG TABLET PO SCH (09:37)
[2020-08-25] MEDS: NYSTATIN 30 GM CREAM TP SCH ×2 (09:38→16:06)
[2020-08-25 16:26] VITALS: BP 106/73
[2020-08-25] MEDS: OLANZapine 7.5 MG TABLET PO SCH (20:47)
[2020-08-26 08:00] VITALS: BP 148/104
[2020-08-26] MEDS: AmLODIPine BESYLATE 5 MG TABLET PO SCH (08:10)
[2020-08-26] MEDS: LOSARTAN POTASSIUM 25 MG TABLET PO SCH (08:10)
[2020-08-26] MEDS: DIVALPROEX SODIUM 500 MG DR TABLET PO SCH ×3 (08:10→21:20)
[2020-08-26] MEDS: OLANZapine 10 MG TABLET PO SCH ×2 (08:10→16:18)
[2020-08-26] MEDS: LEVOTHYROXINE SODIUM 50 MCG TABLET PO SCH (08:11)
[2020-08-26] MEDS: EZETIMIBE 10 MG TABLET PO SCH (08:11)
[2020-08-26] MEDS: HALOPERIDOL 5 MG TABLET PO PRN (08:13)
[2020-08-26] MEDS: LORazepam 2 MG TABLET PO PRN (08:13)
[2020-08-26] MEDS: NYSTATIN 30 GM CREAM TP SCH ×2 (08:15→16:20)
[2020-08-26] MEDS: CIPROFLOXACIN HCL 0.2%/HYDROCORT 1% 10 ML OTIC SUSPENSION AD SCH ×3 (09:24→16:20)
[2020-08-26 16:00] VITALS: BP 128/65
[2020-08-26] MEDS: OLANZapine 7.5 MG TABLET PO SCH (21:20)
[2020-08-27] MEDS: LEVOTHYROXINE SODIUM 50 MCG TABLET PO SCH (06:47)
[2020-08-27 08:00] VITALS: BP 150/98
[2020-08-27] MEDS: OLANZapine 10 MG TABLET PO SCH ×2 (08:29→16:53)
[2020-08-27] MEDS: AmLODIPine BESYLATE 5 MG TABLET PO SCH (08:29)
[2020-08-27] MEDS: LOSARTAN POTASSIUM 25 MG TABLET PO SCH (08:29)
[2020-08-27] MEDS: DIVALPROEX SODIUM 500 MG DR TABLET PO SCH ×3 (08:29→20:37)
[2020-08-27] MEDS: HALOPERIDOL 5 MG TABLET PO PRN ×2 (08:30→12:38)
[2020-08-27] MEDS: EZETIMIBE 10 MG TABLET PO SCH (08:30)
[2020-08-27] MEDS: LORazepam 2 MG TABLET PO PRN ×2 (08:30→12:38)
[2020-08-27] MEDS: CIPROFLOXACIN HCL 0.2%/HYDROCORT 1% 10 ML OTIC SUSPENSION AD SCH ×4 (08:34→16:53)
[2020-08-27] MEDS: NYSTATIN 30 GM CREAM TP SCH ×2 (08:34→16:53)
[2020-08-27 16:37] VITALS: BP 126/74
[2020-08-27] MEDS ORDERED: LORazepam 2 MG/ML VIAL IM ONE (19:15)
[2020-08-27] MEDS ORDERED: DiphenhydrAMINE HCL 50 MG/ML VIAL IM ONE (19:15)
[2020-08-27] MEDS ORDERED: HALOPERIDOL LACTATE 5 MG/ML VIAL IM ONE (19:15)
[2020-08-27] MEDS: OLANZapine 7.5 MG TABLET PO SCH (20:37)
[2020-08-28] MEDS: ZOLPIDEM TARTRATE 10 MG TABLET PO PRN (00:17)
[2020-08-28] MEDS: IBUPROFEN 400 MG TABLET PO PRN ×2 (00:18→15:34)
[2020-08-28] MEDS: LEVOTHYROXINE SODIUM 50 MCG TABLET PO SCH ×2 (06:59→09:22)
[2020-08-28] MEDS: NYSTATIN 30 GM CREAM TP SCH ×2 (09:00→17:09)
[2020-08-28] MEDS: OLANZapine 10 MG TABLET PO SCH ×2 (09:21→17:08)
[2020-08-28] MEDS: DIVALPROEX SODIUM 500 MG DR TABLET PO SCH ×3 (09:21→20:40)
[2020-08-28] MEDS: AmLODIPine BESYLATE 5 MG TABLET PO SCH (09:21)
[2020-08-28] MEDS: LORazepam 2 MG TABLET PO PRN (09:21)
[2020-08-28] MEDS: HALOPERIDOL 5 MG TABLET PO PRN (09:21)
[2020-08-28] MEDS: LOSARTAN POTASSIUM 25 MG TABLET PO SCH (09:22)
[2020-08-28] MEDS: EZETIMIBE 10 MG TABLET PO SCH (09:22)
[2020-08-28] MEDS: CIPROFLOXACIN HCL 0.2%/HYDROCORT 1% 10 ML OTIC SUSPENSION AD SCH ×3 (09:23→17:45)
[2020-08-28 10:21] VITALS: BP 163/98
[2020-08-28 15:34] VITALS: BP 146/81
[2020-08-28 17:41] VITALS: BP 146/81
[2020-08-28] MEDS: OLANZapine 7.5 MG TABLET PO SCH (20:40)
[2020-08-29 08:00] VITALS: BP 149/71
[2020-08-29] MEDS: LOSARTAN POTASSIUM 25 MG TABLET PO SCH (08:12)
[2020-08-29] MEDS: OLANZapine 10 MG TABLET PO SCH ×2 (08:12→16:17)
[2020-08-29] MEDS: LORazepam 2 MG TABLET PO PRN ×2 (08:12→15:48)
[2020-08-29] MEDS: AmLODIPine BESYLATE 5 MG TABLET PO SCH (08:12)
[2020-08-29] MEDS: HALOPERIDOL 5 MG TABLET PO PRN (08:12)
[2020-08-29] MEDS: EZETIMIBE 10 MG TABLET PO SCH (08:12)
[2020-08-29] MEDS: DIVALPROEX SODIUM 500 MG DR TABLET PO SCH ×4 (08:12→22:49)
[2020-08-29] MEDS: NYSTATIN 30 GM CREAM TP SCH ×2 (09:00→16:18)
[2020-08-29] MEDS: CIPROFLOXACIN HCL 0.2%/HYDROCORT 1% 10 ML OTIC SUSPENSION AD SCH ×3 (09:00→16:17)
[2020-08-29 16:29] VITALS: BP 129/67
[2020-08-29] MEDS: OLANZapine 7.5 MG TABLET PO SCH ×2 (21:00→22:49)
[2020-08-30] MEDS: LEVOTHYROXINE SODIUM 50 MCG TABLET PO SCH (07:00)
[2020-08-30] MEDS: OLANZapine 10 MG TABLET PO SCH ×2 (08:09→16:08)
[2020-08-30] MEDS: EZETIMIBE 10 MG TABLET PO SCH (08:09)
[2020-08-30] MEDS: LORazepam 2 MG TABLET PO PRN ×2 (08:09→17:04)
[2020-08-30] MEDS: DIVALPROEX SODIUM 500 MG DR TABLET PO SCH ×3 (08:09→20:36)
[2020-08-30] MEDS: LOSARTAN POTASSIUM 25 MG TABLET PO SCH (08:09)
[2020-08-30] MEDS: HALOPERIDOL 5 MG TABLET PO PRN (08:09)
[2020-08-30] MEDS: AmLODIPine BESYLATE 5 MG TABLET PO SCH (08:09)
[2020-08-30 08:34] VITALS: BP 155/87
[2020-08-30] MEDS: CIPROFLOXACIN HCL 0.2%/HYDROCORT 1% 10 ML OTIC SUSPENSION AD SCH ×3 (09:01→16:10)
[2020-08-30] MEDS: NYSTATIN 30 GM CREAM TP SCH ×2 (09:01→16:10)
[2020-08-30 17:05] VITALS: BP 115/76
[2020-08-30] MEDS: OLANZapine 7.5 MG TABLET PO SCH (20:36)
[2020-08-31] MEDS: LEVOTHYROXINE SODIUM 50 MCG TABLET PO SCH (07:00)
[2020-08-31] MEDS: DIVALPROEX SODIUM 500 MG DR TABLET PO SCH ×3 (08:50→20:02)
[2020-08-31] MEDS: LORazepam 2 MG TABLET PO PRN ×3 (08:50→19:48)
[2020-08-31] MEDS: OLANZapine 10 MG TABLET PO SCH ×2 (08:50→17:01)
[2020-08-31] MEDS: LOSARTAN POTASSIUM 25 MG TABLET PO SCH (08:50)
[2020-08-31] MEDS: AmLODIPine BESYLATE 5 MG TABLET PO SCH (08:50)
[2020-08-31] MEDS: HALOPERIDOL 5 MG TABLET PO PRN ×2 (08:50→19:55)
[2020-08-31] MEDS: EZETIMIBE 10 MG TABLET PO SCH (08:50)
[2020-08-31] MEDS: NYSTATIN 30 GM CREAM TP SCH ×2 (08:53→17:02)
[2020-08-31] MEDS: CIPROFLOXACIN HCL 0.2%/HYDROCORT 1% 10 ML OTIC SUSPENSION AD SCH ×3 (08:53→17:02)
[2020-08-31 16:00] VITALS: BP 117/67
[2020-08-31] MEDS: OLANZapine 7.5 MG TABLET PO SCH (20:02)
[2020-08-31] MEDS: ACETAMINOPHEN 325 MG TABLET PO PRN (20:04)
[2020-09-01] MEDS: LEVOTHYROXINE SODIUM 50 MCG TABLET PO SCH (06:42)
[2020-09-01] MEDS: LORazepam 2 MG TABLET PO PRN ×2 (09:07→14:12)
[2020-09-01] MEDS: LOSARTAN POTASSIUM 25 MG TABLET PO SCH (09:07)
[2020-09-01] MEDS: AmLODIPine BESYLATE 5 MG TABLET PO SCH (09:07)
[2020-09-01] MEDS: DIVALPROEX SODIUM 500 MG DR TABLET PO SCH ×3 (09:07→21:06)
[2020-09-01] MEDS: EZETIMIBE 10 MG TABLET PO SCH (09:07)
[2020-09-01] MEDS: OLANZapine 10 MG TABLET PO SCH ×2 (09:07→16:43)
[2020-09-01] MEDS: CIPROFLOXACIN HCL 0.2%/HYDROCORT 1% 10 ML OTIC SUSPENSION AD SCH ×3 (09:09→16:43)
[2020-09-01] MEDS: NYSTATIN 30 GM CREAM TP SCH ×2 (09:09→16:43)
[2020-09-01] MEDS ORDERED: ChlorproMAZINE HCL 50 MG TABLET PO PRN (15:30)
[2020-09-01] MEDS: NICOTINE 14 MG/24 HOUR PATCH TD PRN (15:48)
[2020-09-01 16:16] VITALS: BP 136/77
[2020-09-01] MEDS: OLANZapine 7.5 MG TABLET PO SCH (21:06)
[2020-09-02 00:29] VITALS: BP 136/84
[2020-09-02] MEDS: LEVOTHYROXINE SODIUM 50 MCG TABLET PO SCH (06:45)
[2020-09-02 08:00] VITALS: BP 132/81
[2020-09-02] MEDS: LOSARTAN POTASSIUM 25 MG TABLET PO SCH (08:45)
[2020-09-02] MEDS: DIVALPROEX SODIUM 500 MG DR TABLET PO SCH ×3 (08:46→21:21)
[2020-09-02] MEDS: AmLODIPine BESYLATE 5 MG TABLET PO SCH (08:46)
[2020-09-02] MEDS: CIPROFLOXACIN HCL 0.2%/HYDROCORT 1% 10 ML OTIC SUSPENSION AD SCH ×3 (08:46→16:49)
[2020-09-02] MEDS: EZETIMIBE 10 MG TABLET PO SCH (08:46)
[2020-09-02] MEDS: OLANZapine 10 MG TABLET PO SCH ×2 (08:46→16:48)
[2020-09-02] MEDS: NYSTATIN 30 GM CREAM TP SCH ×2 (09:06→16:49)
[2020-09-02 16:27] VITALS: BP 131/65
[2020-09-02] MEDS: ACETAMINOPHEN 325 MG TABLET PO PRN (17:15)
[2020-09-02] MEDS: OLANZapine 7.5 MG TABLET PO SCH (21:21)
[2020-09-03] MEDS: LEVOTHYROXINE SODIUM 50 MCG TABLET PO SCH (06:36)
[2020-09-03 08:46] VITALS: BP 116/83
[2020-09-03] MEDS: LOSARTAN POTASSIUM 25 MG TABLET PO SCH (08:55)
[2020-09-03] MEDS: EZETIMIBE 10 MG TABLET PO SCH (08:55)
[2020-09-03] MEDS: NICOTINE 14 MG/24 HOUR PATCH TD PRN (08:56)
[2020-09-03] MEDS: AmLODIPine BESYLATE 5 MG TABLET PO SCH (08:56)
[2020-09-03] MEDS: OLANZapine 10 MG TABLET PO SCH ×2 (08:56→16:16)
[2020-09-03] MEDS: DIVALPROEX SODIUM 500 MG DR TABLET PO SCH ×3 (08:56→20:02)
[2020-09-03] MEDS: CIPROFLOXACIN HCL 0.2%/HYDROCORT 1% 10 ML OTIC SUSPENSION AD SCH ×2 (08:57→13:13)
[2020-09-03] MEDS: NYSTATIN 30 GM CREAM TP SCH ×2 (09:12→16:16)
[2020-09-03] MEDS: HALOPERIDOL 5 MG TABLET PO PRN (14:31)
[2020-09-03] MEDS: LORazepam 2 MG TABLET PO PRN ×2 (14:31→19:22)
[2020-09-03 19:33] VITALS: BP 138/77
[2020-09-03] MEDS: OLANZapine 7.5 MG TABLET PO SCH (20:03)
[2020-09-04] MEDS: LEVOTHYROXINE SODIUM 50 MCG TABLET PO SCH (06:17)
[2020-09-04] MEDS: HALOPERIDOL 5 MG TABLET PO PRN (08:26)
[2020-09-04] MEDS: NYSTATIN 30 GM CREAM TP SCH ×2 (08:26→16:28)
[2020-09-04] MEDS: AmLODIPine BESYLATE 5 MG TABLET PO SCH (08:27)
[2020-09-04] MEDS: OLANZapine 10 MG TABLET PO SCH ×2 (08:27→15:56)
[2020-09-04] MEDS: EZETIMIBE 10 MG TABLET PO SCH (08:27)
[2020-09-04] MEDS: LORazepam 2 MG TABLET PO PRN ×2 (08:27→18:41)
[2020-09-04] MEDS: DIVALPROEX SODIUM 500 MG DR TABLET PO SCH ×3 (08:27→21:01)
[2020-09-04] MEDS: LOSARTAN POTASSIUM 25 MG TABLET PO SCH (08:27)
[2020-09-04 08:40] VITALS: BP 135/81
[2020-09-04 16:10] VITALS: BP 132/85
[2020-09-04 16:31] VITALS: BP 132/85
[2020-09-04] MEDS: IBUPROFEN 400 MG TABLET PO PRN (16:31)
[2020-09-04 18:41] VITALS: BP 132/86
[2020-09-04] MEDS: ACETAMINOPHEN 325 MG TABLET PO PRN (18:41)
[2020-09-04 18:42] LABS: COVID AG,FIA SOURCE NASAL SWAB
[2020-09-04] MEDS: OLANZapine 7.5 MG TABLET PO SCH (21:01)
[2020-09-05] MEDS: LEVOTHYROXINE SODIUM 50 MCG TABLET PO SCH (07:00)
[2020-09-05] MEDS: AmLODIPine BESYLATE 5 MG TABLET PO SCH (08:45)
[2020-09-05] MEDS: OLANZapine 10 MG TABLET PO SCH ×2 (08:45→16:03)
[2020-09-05] MEDS: EZETIMIBE 10 MG TABLET PO SCH (08:45)
[2020-09-05] MEDS: HALOPERIDOL 5 MG TABLET PO PRN ×3 (08:46→22:03)
[2020-09-05] MEDS: DIVALPROEX SODIUM 500 MG DR TABLET PO SCH ×3 (08:46→22:02)
[2020-09-05] MEDS: NYSTATIN 30 GM CREAM TP SCH ×2 (08:47→16:04)
[2020-09-05] MEDS: LOSARTAN POTASSIUM 25 MG TABLET PO SCH (08:47)
[2020-09-05] MEDS: IBUPROFEN 400 MG TABLET PO PRN (09:28)
[2020-09-05 16:47] VITALS: BP 150/76
[2020-09-05] MEDS: OLANZapine 7.5 MG TABLET PO SCH (22:02)
[2020-09-06 00:47] VITALS: BP 122/87
[2020-09-06] MEDS: LEVOTHYROXINE SODIUM 50 MCG TABLET PO SCH (07:00)
[2020-09-06] MEDS: NYSTATIN 30 GM CREAM TP SCH ×2 (09:00→16:08)
[2020-09-06] MEDS: LOSARTAN POTASSIUM 25 MG TABLET PO SCH (09:02)
[2020-09-06] MEDS: DIVALPROEX SODIUM 500 MG DR TABLET PO SCH ×3 (09:02→20:08)
[2020-09-06] MEDS: OLANZapine 10 MG TABLET PO SCH ×2 (09:02→16:05)
[2020-09-06] MEDS: AmLODIPine BESYLATE 5 MG TABLET PO SCH (09:02)
[2020-09-06] MEDS: HALOPERIDOL 5 MG TABLET PO PRN ×2 (09:02→16:05)
[2020-09-06] MEDS: EZETIMIBE 10 MG TABLET PO SCH (09:03)
[2020-09-06] MEDS: NICOTINE 14 MG/24 HOUR PATCH TD PRN (09:34)
[2020-09-06 12:24] VITALS: BP 156/110
[2020-09-06] MEDS ORDERED: CloNIDine HCL 0.1 MG TABLET PO ONE (12:30)
[2020-09-06 13:13] LABS: ANION GAP 10 mmol/L (8-16); CALCIUM, TOTAL 9.6 mg/dL (8.8-10.5); CARBON DIOXIDE 28 mmol/L (22-29); CHLORIDE 101 mmol/L (98-107); CREATININE 0.74 mg/dL (0.60-1.30); GLOMERULAR FILTR. RATE CALC > 60 mL/min (>60); GLUCOSE,RANDOM 123 mg/dL (70-110); SODIUM SERUM 139 mmol/L (136-145); UREA NITROGEN, BLOOD 16 mg/dL (7-18)
[2020-09-06 13:17] LABS: PHOSPHORUS 3.4 mg/dL (2.5-4.9)
[2020-09-06 14:30] VITALS: BP 126/81
[2020-09-06 16:19] VITALS: BP 128/84
[2020-09-06] MEDS: LORazepam 2 MG TABLET PO PRN (19:26)
[2020-09-06] MEDS ORDERED: DiphenhydrAMINE HCL 50 MG/ML VIAL IM ONE (19:45)
[2020-09-06] MEDS ORDERED: HALOPERIDOL LACTATE 5 MG/ML VIAL IM ONE (19:45)
[2020-09-06] MEDS: OLANZapine 7.5 MG TABLET PO SCH (20:08)
[2020-09-07] MEDS: LEVOTHYROXINE SODIUM 50 MCG TABLET PO SCH (06:42)
[2020-09-07] MEDS: NYSTATIN 30 GM CREAM TP SCH ×2 (09:00→16:30)
[2020-09-07] MEDS: LOSARTAN POTASSIUM 25 MG TABLET PO SCH (09:42)
[2020-09-07] MEDS: EZETIMIBE 10 MG TABLET PO SCH (09:43)
[2020-09-07] MEDS: AmLODIPine BESYLATE 5 MG TABLET PO SCH (09:44)
[2020-09-07] MEDS: OLANZapine 10 MG TABLET PO SCH ×2 (09:44→16:28)
[2020-09-07] MEDS: DIVALPROEX SODIUM 500 MG DR TABLET PO SCH ×3 (09:45→22:17)
[2020-09-07] MEDS: HALOPERIDOL 5 MG TABLET PO PRN (11:41)
[2020-09-07] MEDS: LORazepam 2 MG TABLET PO PRN (11:41)
[2020-09-07 16:00] VITALS: BP 118/78
[2020-09-07] MEDS: OLANZapine 7.5 MG TABLET PO SCH (22:17)
[2020-09-08] MEDS: LEVOTHYROXINE SODIUM 50 MCG TABLET PO SCH ×2 (07:00→08:24)
[2020-09-08] MEDS: OLANZapine 10 MG TABLET PO SCH ×2 (08:24→17:26)
[2020-09-08] MEDS: AmLODIPine BESYLATE 5 MG TABLET PO SCH (08:24)
[2020-09-08] MEDS: LOSARTAN POTASSIUM 25 MG TABLET PO SCH (08:24)
[2020-09-08] MEDS: NYSTATIN 30 GM CREAM TP SCH ×2 (08:24→17:31)
[2020-09-08] MEDS: DIVALPROEX SODIUM 500 MG DR TABLET PO SCH ×3 (08:24→20:36)
[2020-09-08] MEDS: EZETIMIBE 10 MG TABLET PO SCH (08:24)
[2020-09-08 09:00] VITALS: BP 140/73
[2020-09-08] MEDS: LORazepam 2 MG TABLET PO PRN (09:58)
[2020-09-08] MEDS: HALOPERIDOL 5 MG TABLET PO PRN (12:21)
[2020-09-08] MEDS: ACETAMINOPHEN 325 MG TABLET PO PRN (15:58)
[2020-09-08 16:00] VITALS: BP 125/73
[2020-09-08] MEDS: OLANZapine 7.5 MG TABLET PO SCH (20:36)
[2020-09-09] MEDS: LEVOTHYROXINE SODIUM 50 MCG TABLET PO SCH (06:44)
[2020-09-09 08:00] VITALS: BP 139/106
[2020-09-09] MEDS: OLANZapine 10 MG TABLET PO SCH ×2 (08:15→16:19)
[2020-09-09] MEDS: AmLODIPine BESYLATE 5 MG TABLET PO SCH (08:15)
[2020-09-09] MEDS: DIVALPROEX SODIUM 500 MG DR TABLET PO SCH ×3 (08:15→20:35)
[2020-09-09] MEDS: LOSARTAN POTASSIUM 25 MG TABLET PO SCH (08:15)
[2020-09-09] MEDS: LORazepam 2 MG TABLET PO PRN (08:15)
[2020-09-09] MEDS: EZETIMIBE 10 MG TABLET PO SCH (08:16)
[2020-09-09] MEDS: NYSTATIN 30 GM CREAM TP SCH ×2 (08:18→16:19)
[2020-09-09 16:00] VITALS: BP 133/81
[2020-09-09] MEDS: OLANZapine 7.5 MG TABLET PO SCH (20:49)
[2020-09-10] MEDS: LEVOTHYROXINE SODIUM 50 MCG TABLET PO SCH (06:34)
[2020-09-10 08:00] VITALS: BP 135/78
[2020-09-10] MEDS: DIVALPROEX SODIUM 500 MG DR TABLET PO SCH ×3 (08:03→20:36)
[2020-09-10] MEDS: LOSARTAN POTASSIUM 25 MG TABLET PO SCH (08:03)
[2020-09-10] MEDS: EZETIMIBE 10 MG TABLET PO SCH (08:04)
[2020-09-10] MEDS: LORazepam 2 MG TABLET PO PRN (08:04)
[2020-09-10] MEDS: NYSTATIN 30 GM CREAM TP SCH ×2 (08:04→16:21)
[2020-09-10] MEDS: OLANZapine 10 MG TABLET PO SCH ×2 (08:04→16:20)
[2020-09-10] MEDS: AmLODIPine BESYLATE 5 MG TABLET PO SCH (08:04)
[2020-09-10] MEDS: OLANZapine 7.5 MG TABLET PO SCH (20:38)
[2020-09-11] MEDS: LEVOTHYROXINE SODIUM 50 MCG TABLET PO SCH (06:36)
[2020-09-11 08:23] VITALS: BP 155/80
[2020-09-11] MEDS: NYSTATIN 30 GM CREAM TP SCH ×2 (09:00→17:00)
[2020-09-11] MEDS: OLANZapine 10 MG TABLET PO SCH ×2 (10:34→17:05)
[2020-09-11] MEDS: DIVALPROEX SODIUM 500 MG DR TABLET PO SCH ×3 (10:34→20:18)
[2020-09-11] MEDS: LOSARTAN POTASSIUM 25 MG TABLET PO SCH (10:34)
[2020-09-11] MEDS: EZETIMIBE 10 MG TABLET PO SCH (10:34)
[2020-09-11] MEDS: AmLODIPine BESYLATE 5 MG TABLET PO SCH (10:34)
[2020-09-11 16:55] VITALS: BP 123/71
[2020-09-11] MEDS: OLANZapine 7.5 MG TABLET PO SCH (20:18)
[2020-09-12] MEDS: LEVOTHYROXINE SODIUM 50 MCG TABLET PO SCH (06:28)
[2020-09-12 08:00] VITALS: BP 151/110
[2020-09-12] MEDS: LORazepam 2 MG TABLET PO PRN ×2 (08:12→16:31)
[2020-09-12] MEDS: DIVALPROEX SODIUM 500 MG DR TABLET PO SCH ×3 (08:12→20:05)
[2020-09-12] MEDS: HALOPERIDOL 5 MG TABLET PO PRN (08:13)
[2020-09-12] MEDS: OLANZapine 10 MG TABLET PO SCH ×2 (08:13→16:31)
[2020-09-12] MEDS: LOSARTAN POTASSIUM 25 MG TABLET PO SCH (08:13)
[2020-09-12] MEDS: AmLODIPine BESYLATE 5 MG TABLET PO SCH (08:13)
[2020-09-12] MEDS: EZETIMIBE 10 MG TABLET PO SCH (08:14)
[2020-09-12] MEDS: NYSTATIN 30 GM CREAM TP SCH ×2 (08:14→17:00)
[2020-09-12 16:17] VITALS: BP 133/88
[2020-09-12] MEDS: ACETAMINOPHEN 325 MG TABLET PO PRN (17:47)
[2020-09-12] MEDS: OLANZapine 7.5 MG TABLET PO SCH (20:05)
[2020-09-12 20:32] LABS: COVID AG,FIA SOURCE NASOPHARYNGEAL
[2020-09-13] MEDS: LEVOTHYROXINE SODIUM 50 MCG TABLET PO SCH (06:38)
[2020-09-13] MEDS: NYSTATIN 30 GM CREAM TP SCH ×2 (09:00→17:00)
[2020-09-13] MEDS: DIVALPROEX SODIUM 500 MG DR TABLET PO SCH ×3 (09:45→20:57)
[2020-09-13] MEDS: LOSARTAN POTASSIUM 25 MG TABLET PO SCH (09:45)
[2020-09-13] MEDS: OLANZapine 10 MG TABLET PO SCH ×2 (09:45→15:47)
[2020-09-13] MEDS: EZETIMIBE 10 MG TABLET PO SCH (09:45)
[2020-09-13] MEDS: AmLODIPine BESYLATE 5 MG TABLET PO SCH (09:45)
[2020-09-13 10:29] VITALS: BP 103/61
[2020-09-13 16:23] VITALS: BP 124/80
[2020-09-13] MEDS: LORazepam 2 MG TABLET PO PRN (19:02)
[2020-09-13] MEDS: HALOPERIDOL 5 MG TABLET PO PRN (19:02)
[2020-09-13] MEDS: OLANZapine 7.5 MG TABLET PO SCH (20:58)
[2020-09-13] MEDS: ZOLPIDEM TARTRATE 10 MG TABLET PO PRN (21:18)
[2020-09-14] MEDS: LEVOTHYROXINE SODIUM 50 MCG TABLET PO SCH (06:55)
[2020-09-14 08:00] VITALS: BP 138/88
[2020-09-14] MEDS: AmLODIPine BESYLATE 5 MG TABLET PO SCH (08:21)
[2020-09-14] MEDS: EZETIMIBE 10 MG TABLET PO SCH (08:21)
[2020-09-14] MEDS: DIVALPROEX SODIUM 500 MG DR TABLET PO SCH ×3 (08:21→20:57)
[2020-09-14] MEDS: OLANZapine 10 MG TABLET PO SCH ×2 (08:21→16:19)
[2020-09-14] MEDS: LOSARTAN POTASSIUM 25 MG TABLET PO SCH (08:22)
[2020-09-14] MEDS: NYSTATIN 30 GM CREAM TP SCH ×2 (08:27→16:22)
[2020-09-14] MEDS: LORazepam 2 MG TABLET PO PRN (12:03)
[2020-09-14 16:48] VITALS: BP 138/78
[2020-09-14] MEDS: OLANZapine 7.5 MG TABLET PO SCH (20:57)
[2020-09-14] MEDS: ZOLPIDEM TARTRATE 10 MG TABLET PO PRN (22:42)
[2020-09-15] MEDS: LEVOTHYROXINE SODIUM 50 MCG TABLET PO SCH (06:55)
[2020-09-15] MEDS: AmLODIPine BESYLATE 5 MG TABLET PO SCH (08:26)
[2020-09-15] MEDS: EZETIMIBE 10 MG TABLET PO SCH (08:26)
[2020-09-15] MEDS: LOSARTAN POTASSIUM 25 MG TABLET PO SCH (08:26)
[2020-09-15] MEDS: DIVALPROEX SODIUM 500 MG DR TABLET PO SCH ×3 (08:26→21:05)
[2020-09-15] MEDS: OLANZapine 10 MG TABLET PO SCH ×2 (08:26→16:19)
[2020-09-15] MEDS: LORazepam 2 MG TABLET PO PRN ×2 (08:27→16:20)
[2020-09-15 08:30] VITALS: BP 128/73
[2020-09-15] MEDS: NYSTATIN 30 GM CREAM TP SCH (09:00)
[2020-09-15] MEDS: HALOPERIDOL 5 MG TABLET PO PRN (11:45)
[2020-09-15 16:25] VITALS: BP 113/57
[2020-09-15] MEDS: OLANZapine 7.5 MG TABLET PO SCH (21:05)
[2020-09-15] MEDS: ZOLPIDEM TARTRATE 10 MG TABLET PO PRN (21:48)
[2020-09-16 05:00] VITALS: BP 123/74
[2020-09-16] MEDS: LEVOTHYROXINE SODIUM 50 MCG TABLET PO SCH ×2 (07:00→09:20)
[2020-09-16] MEDS: LOSARTAN POTASSIUM 25 MG TABLET PO SCH (09:20)
[2020-09-16] MEDS: EZETIMIBE 10 MG TABLET PO SCH (09:20)
[2020-09-16] MEDS: DIVALPROEX SODIUM 500 MG DR TABLET PO SCH ×3 (09:21→20:03)
[2020-09-16] MEDS: HALOPERIDOL 5 MG TABLET PO PRN (09:21)
[2020-09-16] MEDS: LORazepam 2 MG TABLET PO PRN ×2 (09:21→19:18)
[2020-09-16] MEDS: AmLODIPine BESYLATE 5 MG TABLET PO SCH (09:22)
[2020-09-16] MEDS: OLANZapine 10 MG TABLET PO SCH ×2 (09:22→17:10)
[2020-09-16 09:41] VITALS: BP 153/88
[2020-09-16 17:43] VITALS: BP 148/79
[2020-09-16] MEDS: OLANZapine 7.5 MG TABLET PO SCH (20:03)
[2020-09-16] MEDS: ZOLPIDEM TARTRATE 10 MG TABLET PO PRN (22:51)
[2020-09-17] MEDS: LOSARTAN POTASSIUM 25 MG TABLET PO SCH (08:19)
[2020-09-17] MEDS: EZETIMIBE 10 MG TABLET PO SCH (08:19)
[2020-09-17] MEDS: OLANZapine 10 MG TABLET PO SCH ×2 (08:21→16:19)
[2020-09-17] MEDS: AmLODIPine BESYLATE 5 MG TABLET PO SCH (08:21)
[2020-09-17] MEDS: DIVALPROEX SODIUM 500 MG DR TABLET PO SCH ×3 (08:21→20:15)
[2020-09-17 09:00] VITALS: BP 130/76
[2020-09-17] MEDS: LORazepam 2 MG TABLET PO PRN ×2 (09:11→17:40)
[2020-09-17] MEDS: HALOPERIDOL 5 MG TABLET PO PRN (09:11)
[2020-09-17 16:12] VITALS: BP 123/76
[2020-09-17] MEDS: OLANZapine 7.5 MG TABLET PO SCH (20:16)
[2020-09-17] MEDS: ZOLPIDEM TARTRATE 10 MG TABLET PO PRN (20:17)
[2020-09-18] MEDS: LEVOTHYROXINE SODIUM 50 MCG TABLET PO SCH (06:40)
[2020-09-18] MEDS: AmLODIPine BESYLATE 5 MG TABLET PO SCH (08:01)
[2020-09-18] MEDS: LOSARTAN POTASSIUM 25 MG TABLET PO SCH (08:01)
[2020-09-18] MEDS: OLANZapine 10 MG TABLET PO SCH ×2 (08:01→16:17)
[2020-09-18] MEDS: DIVALPROEX SODIUM 500 MG DR TABLET PO SCH ×3 (08:02→22:19)
[2020-09-18] MEDS: EZETIMIBE 10 MG TABLET PO SCH (08:02)
[2020-09-18 08:23] VITALS: BP 142/80
[2020-09-18 16:13] VITALS: BP 123/81
[2020-09-18] MEDS: LORazepam 2 MG TABLET PO PRN (16:36)
[2020-09-18 18:16] VITALS: BP 149/90
[2020-09-18] MEDS: IBUPROFEN 400 MG TABLET PO PRN (18:16)
[2020-09-18] MEDS: OLANZapine 7.5 MG TABLET PO SCH (22:19)
[2020-09-19] MEDS: LEVOTHYROXINE SODIUM 50 MCG TABLET PO SCH (06:55)
[2020-09-19] MEDS: AmLODIPine BESYLATE 5 MG TABLET PO SCH (07:54)
[2020-09-19] MEDS: OLANZapine 10 MG TABLET PO SCH (07:54)
[2020-09-19] MEDS: LOSARTAN POTASSIUM 25 MG TABLET PO SCH (07:54)
[2020-09-19] MEDS: DIVALPROEX SODIUM 500 MG DR TABLET PO SCH (07:54)
[2020-09-19] MEDS: EZETIMIBE 10 MG TABLET PO SCH (07:54)
[2020-09-19] MEDS: HALOPERIDOL 5 MG TABLET PO PRN (08:12)
[2020-09-19] MEDS: LORazepam 2 MG TABLET PO PRN (08:12)
[2020-09-19 08:33] VITALS: BP 123/81
[2020-09-19] MEDS ORDERED: OLAN7.5T2 PO (12:37)
[2020-09-19] MEDS ORDERED: OLAN10TA3 PO (12:37)
== END 2020-09-19 15:00 | disposition home or self-care (01) | DRG 885 ==
LOC: EMS 18:52 → 3EX 20:07 → 3EC 08-11 16:59
PROVIDERS: ADMIT Psychiatry & Neurology Psychiatry; ATTEND Psychiatry & Neurology Psychiatry
DX: F25.0 Schizoaffective disorder, bipolar type (principal); R45.851 Suicidal ideations; D64.9 Anemia, unspecified; E03.9 Hypothyroidism, unspecified; E66.9 Obesity, unspecified; E78.5 Hyperlipidemia, unspecified; F41.1 Generalized anxiety disorder; F84.5 Asperger's syndrome; I10 Essential (primary) hypertension; Z59.0 Homelessness; Z87.891 Personal history of nicotine dependence; Z91.81 History of falling; Z20.822 Contact with and (suspected) exposure to COVID-19
CPT/HCPCS: 84100; 87426; 93005; 99285; G0378; J1200; J1630; J2060; Q0162

== ENCOUNTER 2020-10-18 03:42 | Emergency (ER) | payer MEDICARE, MEDICAID ==
[~2020-10-18] VITALS: Ht 188 cm; Wt 100.9 kg
[~2020-10-18 03:42] MED LIST changes: +OLAN10TA3 PO; +OLAN7.5T2 PO; -OLAN7.5T9 PO
[2020-10-18] MEDS ORDERED: OxyCODONE HCL 5 MG IR TABLET PO ONE (04:30)
[2020-10-18] MEDS ORDERED: SILVER SULFADIAZINE 1% 25 GM CREAM TP ONE (04:30)
[2020-10-18 06:05] VITALS: BP 123/73
== END 2020-10-18 06:43 | disposition home or self-care (01) ==
LOC: EMS 03:42
DX: L55.0 Sunburn of first degree (principal); L55.1 Sunburn of second degree; F41.9 Anxiety disorder, unspecified; F20.9 Schizophrenia, unspecified; F17.210 Nicotine dependence, cigarettes, uncomplicated; Z88.6 Allergy status to analgesic agent; Z91.018 Allergy to other foods; Z79.899 Other long term (current) drug therapy
CPT/HCPCS: 16000; 99283

== ENCOUNTER 2020-10-18 12:30 | Inpatient (IN) | payer MEDICARE, MEDICAID ==
[~2020-10-18] VITALS: Ht 188 cm; Wt 128.8 kg
[~2020-10-18 12:30] MED LIST changes: -EZET10TA13 PO; +EZET10TA57 PO
[2020-10-18 13:18] VITALS: BP 136/83
[2020-10-18] MEDS ORDERED: HALOPERIDOL 5 MG TABLET PO PRN (15:15)
[2020-10-18] MEDS ORDERED: MAG HYDROX/AL HYDROX/SIMETH ES 30 ML SUSPENSION UDCUP PO PRN ×2 (15:15→17:45)
[2020-10-18] MEDS ORDERED: LORazepam 2 MG TABLET PO PRN (15:15)
[2020-10-18] MEDS ORDERED: ZOLPIDEM TARTRATE 10 MG TABLET PO PRN (15:15)
[2020-10-18] MEDS ORDERED: MAGNESIUM HYDROXIDE SUSPENSION 30 ML UDCUP PO PRN ×2 (15:15→17:45)
[2020-10-18 16:00] VITALS: BP 162/107
[2020-10-18] MEDS ORDERED: LOPERAMIDE HCL 2 MG CAPSULE PO PRN (17:45)
[2020-10-18] MEDS ORDERED: DOCUSATE SODIUM 100 MG CAPSULE PO PRN (17:45)
[2020-10-18] MEDS ORDERED: ACETAMINOPHEN 325 MG TABLET PO PRN (17:45)
[2020-10-18] MEDS ORDERED: IBUPROFEN 400 MG TABLET PO PRN (17:45)
[2020-10-18] MEDS ORDERED: CloNIDine HCL 0.1 MG TABLET PO PRN (17:45)
[2020-10-18] MEDS ORDERED: NICOTINE 14 MG/24 HOUR PATCH TD PRN (17:45)
[2020-10-18] MEDS ORDERED: GuaiFENesin/D-METHORPHAN [SUGAR-FREE] 200-20MG/10 ML SYRUP UDCUP PO PRN (17:45)
[2020-10-18] MEDS ORDERED: PETROLATUM,WHITE 28 GM JELLY TP PRN (17:45)
[2020-10-18] MEDS ORDERED: ONDANSETRON HCL 4 MG TABLET PO PRN (17:45)
[2020-10-18] MEDS ORDERED: ALBUTEROL SULFATE HFA 90 MCG/PUFF 8 GM INHALER IH PRN (17:45)
[2020-10-18] MEDS: SILVER SULFADIAZINE 1% 25 GM CREAM TP SCH (18:45)
[2020-10-18 19:03] VITALS: BP 138/85
[2020-10-18] MEDS: OxyCODONE HCL 5 MG IR TABLET PO PRN (19:03)
[2020-10-18] MEDS ORDERED: HALOPERIDOL LACTATE 5 MG/ML VIAL ONE (20:49)
[2020-10-18] MEDS ORDERED: LORazepam 2 MG/ML VIAL ONE (20:49)
[2020-10-18] MEDS ORDERED: HALOPERIDOL LACTATE 5 MG/ML VIAL IM ONE (21:00)
[2020-10-18] MEDS ORDERED: LORazepam 2 MG/ML VIAL IM ONE (21:00)
[2020-10-18] MEDS: BENZOCAINE 20%/MENTHOL 56 GM SPRAY CANISTER TP PRN (21:25)
[2020-10-19] MEDS ORDERED: LEVOTHYROXINE SODIUM 50 MCG TABLET PO SCH (07:00)
[2020-10-19] MEDS: SILVER SULFADIAZINE 1% 25 GM CREAM TP SCH ×2 (08:38→17:00)
[2020-10-19] MEDS ORDERED: AmLODIPine BESYLATE 5 MG TABLET PO SCH (09:00)
[2020-10-19 12:14] VITALS: BP 142/93
[2020-10-19] MEDS ORDERED: MAGNESIUM HYDROXIDE SUSPENSION 30 ML UDCUP PO PRN (12:45)
[2020-10-19] MEDS ORDERED: LOPERAMIDE HCL 2 MG CAPSULE PO PRN (12:45)
[2020-10-19] MEDS ORDERED: ALBUTEROL SULFATE HFA 90 MCG/PUFF 8 GM INHALER IH PRN (12:45)
[2020-10-19] MEDS ORDERED: MAG HYDROX/AL HYDROX/SIMETH ES 30 ML SUSPENSION UDCUP PO PRN (12:45)
[2020-10-19] MEDS ORDERED: ONDANSETRON HCL 4 MG TABLET PO PRN (12:45)
[2020-10-19] MEDS ORDERED: CloNIDine HCL 0.1 MG TABLET PO PRN (12:45)
[2020-10-19] MEDS ORDERED: PETROLATUM,WHITE 28 GM JELLY TP PRN (12:45)
[2020-10-19] MEDS ORDERED: NICOTINE 14 MG/24 HOUR PATCH TD PRN (12:45)
[2020-10-19] MEDS ORDERED: DOCUSATE SODIUM 100 MG CAPSULE PO PRN (12:45)
[2020-10-19] MEDS ORDERED: GuaiFENesin/D-METHORPHAN [SUGAR-FREE] 200-20MG/10 ML SYRUP UDCUP PO PRN (12:45)
[2020-10-19 16:29] VITALS: BP 124/70
[2020-10-19] MEDS: DIVALPROEX SODIUM 500 MG DR TABLET PO SCH ×2 (17:00→20:28)
[2020-10-19] MEDS: OLANZapine 10 MG TABLET PO SCH (17:00)
[2020-10-19] MEDS: OxyCODONE HCL 5 MG IR TABLET PO PRN (17:42)
[2020-10-19 17:45] VITALS: BP 145/90
[2020-10-19 18:45] VITALS: BP 135/80
[2020-10-19] MEDS: OLANZapine 7.5 MG TABLET PO SCH (20:28)
[2020-10-19] MEDS: IBUPROFEN 400 MG TABLET PO PRN (20:44)
[2020-10-19 20:45] VITALS: BP 135/82
[2020-10-20] MEDS: LEVOTHYROXINE SODIUM 50 MCG TABLET PO SCH (06:40)
[2020-10-20] MEDS: DIVALPROEX SODIUM 500 MG DR TABLET PO SCH ×3 (08:02→21:00)
[2020-10-20] MEDS: EZETIMIBE 10 MG TABLET PO SCH (08:02)
[2020-10-20] MEDS: AmLODIPine BESYLATE 5 MG TABLET PO SCH (08:02)
[2020-10-20] MEDS: OLANZapine 10 MG TABLET PO SCH ×2 (08:02→16:38)
[2020-10-20] MEDS: LOSARTAN POTASSIUM 25 MG TABLET PO SCH (08:03)
[2020-10-20] MEDS: OxyCODONE HCL 5 MG IR TABLET PO PRN ×2 (08:14→15:52)
[2020-10-20] MEDS: SILVER SULFADIAZINE 1% 25 GM CREAM TP SCH ×2 (08:22→16:46)
[2020-10-20] MEDS: BENZTROPINE MESYLATE 1 MG TABLET PO SCH (09:00)
[2020-10-20 16:21] VITALS: BP 132/86
[2020-10-20] MEDS ORDERED: NICOTINE 7 MG/24 HOUR PATCH TD PRN (16:30)
[2020-10-20] MEDS: CEPHALEXIN MONOHYDRATE 500 MG CAPSULE PO SCH ×2 (16:42→23:33)
[2020-10-20] MEDS: OLANZapine 7.5 MG TABLET PO SCH (21:00)
[2020-10-21] MEDS: LEVOTHYROXINE SODIUM 50 MCG TABLET PO SCH (06:39)
[2020-10-21] MEDS: LOSARTAN POTASSIUM 25 MG TABLET PO SCH (07:51)
[2020-10-21] MEDS: BENZTROPINE MESYLATE 1 MG TABLET PO SCH (07:51)
[2020-10-21] MEDS: AmLODIPine BESYLATE 5 MG TABLET PO SCH (07:51)
[2020-10-21] MEDS: DIVALPROEX SODIUM 500 MG DR TABLET PO SCH ×3 (07:51→21:55)
[2020-10-21] MEDS: CEPHALEXIN MONOHYDRATE 500 MG CAPSULE PO SCH ×3 (07:51→23:50)
[2020-10-21] MEDS: EZETIMIBE 10 MG TABLET PO SCH (07:51)
[2020-10-21] MEDS: OLANZapine 10 MG TABLET PO SCH ×2 (07:51→16:05)
[2020-10-21] MEDS: SILVER SULFADIAZINE 1% 25 GM CREAM TP SCH ×2 (07:54→16:48)
[2020-10-21 08:00] VITALS: BP 164/108
[2020-10-21] MEDS: BENZOCAINE 20%/MENTHOL 56 GM SPRAY CANISTER TP PRN (08:39)
[2020-10-21 16:00] VITALS: BP 126/83
[2020-10-21 19:20] LABS: APPEARANCE,URINE CLEAR (CLEAR); BILIRUBIN,URINE NEGATIVE (NEGATIVE); GLUCOSE, URINE (UA) NEGATIVE (NEGATIVE); KETONES,URINE NEGATIVE (NEGATIVE); LEUKOCYTE ESTERASE ,URINE NEGATIVE (NEGATIVE); NITRATE,URINE NEGATIVE (NEGATIVE); OCCULT BLOOD,URINE NEGATIVE (NEGATIVE); PROTEIN,URINE NEGATIVE (NEGATIVE)
[2020-10-21 19:25] LABS: AMPHET/METH SCREEN,URINE NEGATIVE (NEGATIVE); BARBITURATE SCREEN, URINE NEGATIVE (NEGATIVE); BENZODIAZEPINES SCREEN,URINE NEGATIVE (NEGATIVE); CANNABINOID SCREEN,URINE NEGATIVE (NEGATIVE); COCAINE SCREEN,URINE NEGATIVE (NEGATIVE); METHADONE SCREEN, URINE NEGATIVE (NEGATIVE); OPIATE SCREEN,URINE NEGATIVE (NEGATIVE)
[2020-10-21 19:27] LABS: PHENCYCLIDINE SCREEN,URINE NEGATIVE (NEGATIVE)
[2020-10-21] MEDS: OLANZapine 7.5 MG TABLET PO SCH (21:55)
[2020-10-22] MEDS: BENZOCAINE 20%/MENTHOL 56 GM SPRAY CANISTER TP PRN ×2 (03:07→08:58)
[2020-10-22] MEDS: LEVOTHYROXINE SODIUM 50 MCG TABLET PO SCH (06:27)
[2020-10-22 08:00] VITALS: BP 148/99
[2020-10-22] MEDS: BENZTROPINE MESYLATE 1 MG TABLET PO SCH (08:58)
[2020-10-22] MEDS: OLANZapine 10 MG TABLET PO SCH ×2 (08:58→16:41)
[2020-10-22] MEDS: AmLODIPine BESYLATE 5 MG TABLET PO SCH (08:58)
[2020-10-22] MEDS: EZETIMIBE 10 MG TABLET PO SCH (08:58)
[2020-10-22] MEDS: DIVALPROEX SODIUM 500 MG DR TABLET PO SCH ×3 (08:58→21:39)
[2020-10-22] MEDS: SILVER SULFADIAZINE 1% 25 GM CREAM TP SCH ×2 (08:59→16:41)
[2020-10-22] MEDS: LOSARTAN POTASSIUM 25 MG TABLET PO SCH (08:59)
[2020-10-22] MEDS: CEPHALEXIN MONOHYDRATE 500 MG CAPSULE PO SCH ×2 (08:59→16:41)
[2020-10-22 16:00] VITALS: BP 119/81
[2020-10-22] MEDS: OLANZapine 7.5 MG TABLET PO SCH (21:39)
[2020-10-23] MEDS: BENZOCAINE 20%/MENTHOL 56 GM SPRAY CANISTER TP PRN ×2 (01:35→10:52)
[2020-10-23] MEDS: LEVOTHYROXINE SODIUM 50 MCG TABLET PO SCH (06:58)
[2020-10-23 08:03] VITALS: BP 125/85
[2020-10-23] MEDS: IBUPROFEN 400 MG TABLET PO PRN (08:20)
[2020-10-23] MEDS: DIVALPROEX SODIUM 500 MG DR TABLET PO SCH (08:20)
[2020-10-23] MEDS: BENZTROPINE MESYLATE 1 MG TABLET PO SCH (08:20)
[2020-10-23] MEDS: CEPHALEXIN MONOHYDRATE 500 MG CAPSULE PO SCH ×2 (08:20)
[2020-10-23] MEDS: AmLODIPine BESYLATE 5 MG TABLET PO SCH (08:20)
[2020-10-23] MEDS: OLANZapine 10 MG TABLET PO SCH (08:20)
[2020-10-23] MEDS: EZETIMIBE 10 MG TABLET PO SCH (08:21)
[2020-10-23] MEDS: SILVER SULFADIAZINE 1% 25 GM CREAM TP SCH (08:21)
[2020-10-23] MEDS: LOSARTAN POTASSIUM 25 MG TABLET PO SCH (08:21)
[2020-10-23] MEDS ORDERED: BENZ1TAB10 PO (12:01)
[2020-10-23] MEDS ORDERED: CEPH500C3 PO (13:16)
[2020-10-23] MEDS ORDERED: SILV20CR11 TP (13:19)
== END 2020-10-23 14:10 | disposition home or self-care (01) | DRG 885 ==
LOC: 3EC 16:00
PROVIDERS: ADMIT Psychiatry & Neurology Psychiatry; ATTEND Psychiatry & Neurology Psychiatry
DX: F25.0 Schizoaffective disorder, bipolar type (principal); R45.851 Suicidal ideations; E03.9 Hypothyroidism, unspecified; E66.9 Obesity, unspecified; E78.5 Hyperlipidemia, unspecified; L55.9 Sunburn, unspecified; F17.210 Nicotine dependence, cigarettes, uncomplicated; I10 Essential (primary) hypertension; K59.00 Constipation, unspecified; Z59.0 Homelessness; Z79.899 Other long term (current) drug therapy; Z88.8 Allergy status to other drugs, medicaments and biological substances; Z68.36 Body mass index [BMI] 36.0-36.9, adult
CPT/HCPCS: 80307; 81003; J1630; J2060; Q0162